=== PATIENT | female | born 1950 | race Caucasian/White ===

== ENCOUNTER 2016-11-03 15:27 | Inpatient (IN) | payer BC, OTHER ==
[~2016-11-03] VITALS: Ht 165.1 cm; Wt 69.5 kg
[2016-11-03] MEDS ORDERED: SODIUM CHLORIDE 0.9% 1000ML 1,000 ML IV STA (15:34)
[2016-11-03 15:52] LABS: BASO % 0.4 %; BASO ABS # 0.04 K/uL (0-0.2); COMPLETE YES; EOS % 1.2 %; HEMATOCRIT 36.3 % (37-47); IG% 0.1 %; LYMPH % 36.3 %; LYMPH ABS # 3.27 K/uL (1.2-3.4); MEAN CELL VOLUME 88.5 fL (80-100); MEAN CORPUSCULAR HEMOGLOBIN 29.5 pg (25-34); MEAN CORPUSCULAR HGB CONC 33.3 g/dl (32-36); MEAN PLATELET VOLUME 9.2 fL (7.4-10.4); MONO % 10.3 %; NEUT % 51.7 %; PLATELET COUNT 244 K/uL (130-400)
--- NOTE | 2016-11-03 15:53 | DIAGNOSTIC IMAGING REPORT ---
SINGLE VIEW CHEST CLINICAL HISTORY: Generalized weakness. Atypical chest pain. FINDINGS: An AP, portable, upright chest radiograph is compared to study dated 01/04/2014. The heart is top normal for projection. The mediastinal contour is within normal limits. Chronic interstitial thickening is unchanged. No airspace consolidation, large pleural effusion, or pneumothorax is seen. The skeletal structures are osteopenic. The bony thorax is grossly intact. Surgical clips are noted in the left axilla. IMPRESSION: No acute cardiopulmonary abnormality. Electronically signed by: Jerry Funez M.D. 11/03/2016 3:52 PM Dictated Date/Time: 11/03/2016 3:51 PM
[2016-11-03 16:00] LABS: INR 0.9 (0.9-1.1); PARTIAL THROMBOPLASTIN RATIO 0.9
[2016-11-03 16:09] LABS: ALT/SGPT 38 U/L (12-78); AST/SGOT 30 U/L (15-37); BLOOD UREA NITROGEN 14 mg/dl (7-18); BUN/CREATININE RATIO 20.1 (10-20); CALCIUM 9.1 mg/dl (8.5-10.1); CARBON DIOXIDE 24 mmol/L (21-32); CHLORIDE 107 mmol/L (98-107); CREATININE 0.68 mg/dl (0.60-1.20); GLUCOSE 84 mg/dl (70-99); MAGNESIUM 2.2 mg/dl (1.8-2.4); POTASSIUM 3.3 mmol/L (3.5-5.1); SODIUM 140 mmol/L (136-145)
[2016-11-03 16:18] LABS: ALKALINE PHOSPHATASE 61 U/L (45-117); CKMB/CK RATIO 1.3 (0-3.0); THYROID STIMULATING HORMONE 0.621 uIu/ml (0.300-4.500)
--- NOTE | 2016-11-03 16:41 | DIAGNOSTIC IMAGING REPORT ---
ULTRASOUND RIGHT UPPER QUADRANT ABDOMEN CLINICAL HISTORY: Right upper quadrant abdominal pain. COMPARISON STUDY: Abdominal ultrasound dated 01/04/2014. TECHNIQUE: Real-time, grayscale, and color flow sonography of the right upper quadrant of the abdomen was performed. Images are reviewed in the transverse and longitudinal planes. FINDINGS: Liver: The liver is normal in size and echotexture. There is no intrahepatic biliary ductal dilatation. The main portal vein is patent. Gallbladder: The gallbladder is distended and there are small calcified gallstones identified. There is no gallbladder wall thickening or pericholecystic fluid. A sonographic Baxter's sign is reportedly absent. The common bile duct measures up to 0.6 cm in diameter. Pancreas: Visualized portions of the pancreatic head and body are normal in appearance. The splenic vein is patent. Right kidney: Survey images of the right kidney demonstrate normal size and echotexture. There is no hydronephrosis. Ascites: None. IMPRESSION: The gallbladder is distended and there are small calcified gallstones identified. The gallbladder wall is not thickened and a sonographic Baxter's sign is reportedly absent. There is no definitive sonographic evidence of acute cholecystitis. If there is strong clinical concern for acute cholecystitis consider nuclear hepatobiliary scan for further assessment. Electronically signed by: Jerry Funez M.D. 11/03/2016 4:39 PM Dictated Date/Time: 11/03/2016 4:37 PM
[2016-11-03] MEDS ORDERED: FLUO40CA8 PO (17:06)
[2016-11-03] MEDS ORDERED: MoRPHine SULFATE 4 MG/ML 1 ML CARP\\VIAL IV STA (17:14)
[2016-11-03] MEDS ORDERED: ONDANSETRON INJ 2 MG/ML 2 ML VIAL IV STA (17:14)
[2016-11-03] MEDS ORDERED: MULT-513 PO (17:16)
[2016-11-03] MEDS ORDERED: MULT60CA PO (17:16)
[2016-11-03] MEDS ORDERED: CALCTAB7 PO (17:16)
[2016-11-03] MEDS ORDERED: EZET10TA41 PO (17:16)
[2016-11-03] MEDS ORDERED: ALPR0.5T PO (17:16)
[2016-11-03] MEDS ORDERED: LANS15CA6 PO (17:16)
[2016-11-03] MEDS ORDERED: GLUCCAP31 PO (17:16)
[2016-11-03 18:50] LABS: URINE APPEARANCE CLEAR (CLEAR); URINE BILIRUBIN NEG (NEG); URINE COLOR YELLOW; URINE NITRITE NEG (NEG); URINE PH 7.5 (4.5-7.5); URINE SPECIFIC GRAVITY 1.015 (1.000-1.030); UROBILINOGEN NEG (NEG)
[2016-11-03 18:55] LABS: MANUAL MICROSCOPIC REQUIRED? NO; REVIEW REQ? NO
[2016-11-03] MEDS: POTASSIUM CHLORIDE 10 MEQ TABCR PO STA ×2 (20:55→21:00)
--- NOTE | 2016-11-03 21:15 | History and Physical ---
History & Physical Date & Time of Service: November 03, 2016 at 20:51 Chief Complaint: Chest Pains Primary Care Physician: Sheron Gill D.OConchita History of Present Illness Source: patient This is a 66 y/o female with PMHx as outlined below who presents to the ED c/o epigastric pain x 6 hrs. 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 Her sxs were assoc with nausea. Nothing makes her sxs better or worse but she mentions she feels like if she keeps moving she will feel better. She did not take anything for her sxs at home. Last meal was breakfast this morning. Pt has had similar sxs a few years ago but her workup was benign and the pain eventually subsided. Pt denies fever/ chills, diaphoresis, chest pain, SOB, vomiting, bowel or bladder issues, LE edema ,calf pain, lightheadedness/dizziness. In the ED, vitals are stable. Pt is afebrile with no leukocytosis. K+ 3.3. LFTs WNL. gallbladder US + gallbladder distention but no thickening. Pt is stable and will be admitted for further evaluation and treatment. Past Medical/Surgical History Medical Problems: (1) Anxiety Status: Chronic (2) Breast CA Status: Resolved Surgical Problems: (1) History of lumpectomy of left breast Status: Resolved Family History No pertinent family history Social History Smoking Status: Never Smoker Alcohol Use: socially Drug Use: none Marital Status: Housing status: lives with family Occupational Status: retired Allergies Coded Allergies: Nitrofurantoin (Verified Allergy, Intermediate, DIZZY, 01/04/14) Sulfa Drugs (Verified Allergy, Intermediate, dizzy, 01/04/14) Home Medications Scheduled Calcium Carbonate-Vitamin D W/ (Caltrate 600 Plus), 1 TAB PO BID Ezetimibe/Simvastatin (Vytorin 10MG/40MG), 1 TAB PO QAM Fluoxetine (Prozac), 40 MG PO DAILY Glucosamine Sulfate-Methylsulf (Msm/Glucosamine), 1 CAP PO BID Lansoprazole (Prevacid), 30 MG PO DAILY Multiple Vitamins W/ Minerals (Preservision Areds 2), 2 CAP PO QAM Multivitamins/Minerals (Mvi With Minerals), 1 TAB PO DAILY Scheduled PRN Alprazolam (Xanax), 0.5 MG PO TID PRN for Anxiety Review of Systems Constitutional: No chills, No fatigue, No fever, No sweats, No weakness Eyes: No worsening of vision ENT: No hearing loss Respiratory: No cough, No shortness of breath Cardiovascular: No chest pain, No claudication, No edema Abdomen: + nausea, + pain, No GI bleeding, No constipation, No diarrhea, No vomiting Musculoskeletal: No calf pain, No swelling Genitourinary - Female: No dysuria, No hematuria Neurologic: No weakness Psychiatric: No depression symptoms Endocrine: No fatigue Hematologic / Lymphatic: No abnormal bleeding/bruising Integumentary: No new/changing skin lesions Physical Exam Vital Signs Date Time Temp Pulse Resp B/P Pulse Ox O2 Delivery O2 Flow Rate FiO2 11/03/16 18:54 75 19 137/75 93 Room Air 11/03/16 17:19 75 11/03/16 17:16 71 15 136/80 100 Room Air 11/03/16 15:43 71 12 123/77 99 Room Air 11/03/16 15:39 99 Room Air 11/03/16 15:39 99 Room Air 11/03/16 15:39 99 Room Air 11/03/16 15:29 36.4 76 20 117/72 99 Room Air General Appearance: WD/WN, no apparent distress, + pertinent finding (Pt is sitting up in bed with at bedside) Head: normocephalic, atraumatic Eyes: normal inspection, + pertinent finding (anicteric) ENT: hearing grossly normal Neck: supple Respiratory/Chest: chest non-tender, lungs clear, normal breath sounds, no respiratory distress Cardiovascular: regular rate, rhythm, no edema, no murmur Abdomen/GI: normal bowel sounds, soft, + tenderness (RUQ; + murphys sign) Back: normal inspection Extremities/Musculoskelatal: normal inspection, no calf tenderness, no pedal edema Neurologic/Psych: alert, normal mood/affect, oriented x 3 Skin: normal color, warm/dry, + pertinent finding (no jaundice) Diagnostics Laboratory Results Results Past 24 Hours Test 11/03/16 15:40 11/03/16 18:30 Range/Units White Blood Count 9.00 4.8-10.8 K/uL Red Blood Count 4.10 4.2-5.4 M/uL Hemoglobin 12.1 12.0-16.0 g/dL Hematocrit 36.3 37-47 % Mean Corpuscular Volume 88.5 80-100 fL Mean Corpuscular Hemoglobin 29.5 25-34 pg Mean Corpuscular Hemoglobin Concent 33.3 32-36 g/dl Platelet Count 244 130-400 K/uL Mean Platelet Volume 9.2 7.4-10.4 fL Neutrophils (%) (Auto) 51.7 % Lymphocytes (%) (Auto) 36.3 % Monocytes (%) (Auto) 10.3 % Eosinophils (%) (Auto) 1.2 % Basophils (%) (Auto) 0.4 % Neutrophils # (Auto) 4.64 1.4-6.5 K/uL Lymphocytes # (Auto) 3.27 1.2-3.4 K/uL Monocytes # (Auto) 0.93 0.11-0.59 K/uL Eosinophils # (Auto) 0.11 0-0.5 K/uL Basophils # (Auto) 0.04 0-0.2 K/uL RDW Standard Deviation 43.8 36.4-46.3 fL RDW Coefficient of Variation 13.4 11.5-14.5 % Immature Granulocyte % (Auto) 0.1 % Immature Granulocyte # (Auto) 0.01 0.00-0.02 K/uL Prothrombin Time 10.0 9.0-12.0 SECONDS Prothromb Time International Ratio 0.9 0.9-1.1 Activated Partial Thromboplast Time 23.3 21.0-31.0 SECONDS Partial Thromboplastin Ratio 0.9 Sodium Level 140 136-145 mmol/L Potassium Level 3.3 3.5-5.1 mmol/L Chloride Level 107 98-107 mmol/L Carbon Dioxide Level 24 21-32 mmol/L Anion Gap 9.0 3-11 mmol/L Blood Urea Nitrogen 14 7-18 mg/dl Creatinine 0.68 0.60-1.20 mg/dl Est Creatinine Clear Calc Drug Dose 79.7 ml/min Estimated GFR () 105.6 Estimated GFR (Non- 91.2 BUN/Creatinine Ratio 20.1 10-20 Random Glucose 84 70-99 mg/dl Calcium Level 9.1 8.5-10.1 mg/dl Magnesium Level 2.2 1.8-2.4 mg/dl Total Bilirubin 0.5 0.2-1 mg/dl Direct Bilirubin < 0.1 0-0.2 mg/dl Aspartate Amino Transf (AST/SGOT) 30 15-37 U/L Alanine Aminotransferase (ALT/SGPT) 38 12-78 U/L Alkaline Phosphatase 61 45-117 U/L Total Creatine Kinase 164 26-192 U/L Creatine Kinase MB 2.2 0.5-3.6 ng/ml Creatine Kinase MB Ratio 1.3 0-3.0 Troponin I < 0.015 0-0.045 ng/ml Total Protein 7.8 6.4-8.2 gm/dl Albumin 4.2 3.4-5.0 gm/dl Lipase 172 73-393 U/L Thyroid Stimulating Hormone (TSH) 0.621 0.300-4.500 uIu/ml Urine Color YELLOW Urine Appearance CLEAR CLEAR Urine pH 7.5 4.5-7.5 Urine Specific [place] 1.015 1.000-1.030 Urine Protein NEG NEG Urine Glucose (UA) NEG NEG Urine Ketones 1+ NEG Urine Occult Blood NEG NEG Urine Nitrite NEG NEG Urine Bilirubin NEG NEG Urine Urobilinogen NEG NEG Urine Leukocyte Esterase TRACE NEG Urine WBC (Auto) 1-5 0-5 /hpf Urine RBC (Auto) 0-4 0-4 /hpf Urine Hyaline Casts (Auto) 0 0-5 /lpf Urine Epithelial Cells (Auto) 5-10 0-5 /lpf Urine Bacteria (Auto) NEG NEG Diagnostic Radiology GALLBLADDER US IMPRESSION: The gallbladder is distended and there are small calcified gallstones identified. The gallbladder wall is not thickened and a sonographic Baxter's sign is reportedly absent. There is no definitive sonographic evidence of acute cholecystitis. If there is strong clinical concern for acute cholecystitis consider nuclear hepatobiliary scan for further assessment. CXR IMPRESSION: No acute cardiopulmonary abnormality. EKG EKG: NSR at 68 bpm with no acute ischemic changes; PVCs no longer present when compared to EKG from 01/04/14 Impression Assessment and Plan BILIARY COLIC pt presented with crampy epigastric pain assoc with nausea -admit observation status to med/surg -pt is afebrile with no leukocytosis -LFTs and lipase WNL -Gallbladder US + distention but no wall thickening -keep NPO for now -cont IVF, antiemetics and pain mgmt -obtain HIDA scan for further evaluation -monitor HYPOKALEMIA -K+ 3.3; replete -monitor with daily prp H/O BREAST CA -s/p L breast lumpectomy and chemo in 2000 -stable ANXIETY -cont Prozac and Xanax PRN GERD -cont Prevacid DYSLIPIDEMIA -cont Vytorin DVT PROPHYLAXIS -subq Lovenox CODE STATUS -FULL CODE status DISPO -Observation status until further workup is complete. Pt seen in collaboration with Dr. Rob. Please see his addendum for further details. Thanks! -Pt will be seen by Dr. Faith starting tomorrow AM. Assessment/Plan IM ATTENDING : Patient seen and examined. Preceding documentation by Miss Justine Alonso PA-C reviewed. FINAL ASSESSMENT AND PLAN as follows: 1. Right upper quadrant pain biliary colic vs acute cholecystitis no sepsis. 2. Hypokalemia secondary to illness. 3. History of breast cancer, left status post surgery, radiation and chemotherapy/completed hormonal tx. OBS GMF analgesia. HIDA scan. Further management pending HIDA scan results. Replace potassium. DVT prophylaxis, Lovenox subQ. Full code.
[2016-11-03] MEDS ORDERED: KETOROLAC TROMETHAMINE 30 MG/ML VIAL IV STA (21:42)
[2016-11-03] MEDS ORDERED: PROMETHAZINE HCL INJ 12.5 MG in SODIUM CHLORIDE 0.9% 50ML 50 ML IV PRN (21:45)
[2016-11-03] MEDS ORDERED: HYDROmorphone INJ 0.5 MG/0.5 ML SYR IV PRN (21:45)
[2016-11-03] MEDS ORDERED: ONDANSETRON INJ 2 MG/ML 2 ML VIAL IV PRN (21:45)
[2016-11-03] MEDS ORDERED: LORAZEPAM 2 MG/ML 1 ML VIAL IV PRN (21:45)
[2016-11-03] MEDS ORDERED: IV FLUIDS COMPLETED PRN (22:00)
[2016-11-03] MEDS ORDERED: LACTATED RINGER'S 1000ML 1,000 ML IV SCH (22:15)
[2016-11-03 22:30] VITALS: BP 135/79; PULSE 76; TEMP 36.9; O2SAT 95; Ht 165.1 cm; Wt 69.5 kg
[2016-11-03] MEDS: POTASSIUM CHLR 10 MEQ / WTR 10 MEQ in PREMIXED WATER 100 ML IV SCH (23:00)
[2016-11-04] VITALS (8 sets, daily range): BP systolic 93–117; BP diastolic 55–76; PULSE 68–79; TEMP 36.6–37.2; O2SAT 92–98
[2016-11-04] MEDS: POTASSIUM CHLR 10 MEQ / WTR 10 MEQ in PREMIXED WATER 100 ML IV SCH (00:12)
--- NOTE | 2016-11-04 00:40 | EMERGENCY ROOM VISIT NOTE ---
History Report prepared by Christiano: Malini Paul Under the Supervision of: Dr. Adin Emanuel M.D. First contact with patient: 15:34 Chief Complaint: CHEST PAIN Stated Complaint: CHEST PAINS History of Present Illness The patient is a 66 year old female who presents to the Emergency Room with complaints of constant chest/epigastric abdominal pain starting an hour ago. The patient rates her pain as a 2/10 in severity. She reports that she was driving around while putting signs up for an event this weekend and a pain feeling like she "swallowed too much air." She states that it feels similar to bloating, but located under her ribs on the right. The patient reports that she tried to swallow more air to burp, but had no relief. She notes that the pain does not move and that it worsens when letting her breath out. She reports that she has not taken anything for the pain. The patient states that standing and bending over help relieve the pain. The patient also complains of a dry mouth. She notes that she has never been to her doctor for this before. The patient states that she came to the ED one or two years ago with similar pain, but the pain was in her gut. Pt denies LOC, headache, fevers, chills, diaphoresis, visual changes, neck pain, arm pain, jaw pain, breathing difficulties, nausea, vomiting, back pain, melena, hematochezia, urinary symptoms, numbness, weakness , lymphadenopathy, rash, or other complaints. Source of History: patient Onset: an hour ago Position: chest Symptom Intensity: 2/10 Timing: constant Modifying Factors (Worsening): breathing (when breathing out) Modifying Factors (Relieving): other (standing and bending over) Note: The patient complains of a dry mouth. Review of Systems See HPI for pertinent positives and negatives. A total of ten systems were reviewed and were otherwise negative. Past Medical & Surgical Medical Problems: (1) Abdominal pain (2) Anxiety (3) Breast CA (4) Breast cancer Surgical Problems: (1) History of lumpectomy of left breast Family History No pertinent family history Social History Smoking Status: Never Smoker Marital Status: Housing Status: lives with family Current/Historical Medications Scheduled Calcium Carbonate-Vitamin D W/ (Caltrate 600 Plus), 1 TAB PO BID Ezetimibe/Simvastatin (Vytorin 10MG/40MG), 1 TAB PO QAM Fluoxetine (Prozac), 40 MG PO DAILY Glucosamine Sulfate-Methylsulf (Msm/Glucosamine), 1 CAP PO BID Lansoprazole (Prevacid), 30 MG PO DAILY Multiple Vitamins W/ Minerals (Preservision Areds 2), 2 CAP PO QAM Multivitamins/Minerals (Mvi With Minerals), 1 TAB PO DAILY Scheduled PRN Alprazolam (Xanax), 0.5 MG PO TID PRN for Anxiety Allergies Coded Allergies: Nitrofurantoin (Verified Allergy, Intermediate, DIZZY, 01/04/14) Sulfa Drugs (Verified Allergy, Intermediate, dizzy, 01/04/14) Physical Exam Vital Signs Date Time Temp Pulse Resp B/P Pulse Ox O2 Delivery O2 Flow Rate FiO2 11/03/16 21:29 66 11/03/16 20:53 62 23 117/69 97 Room Air 11/03/16 18:54 75 19 137/75 93 Room Air 11/03/16 17:19 75 11/03/16 17:16 71 15 136/80 100 Room Air 11/03/16 15:43 71 12 123/77 99 Room Air 11/03/16 15:39 99 Room Air 11/03/16 15:39 99 Room Air 11/03/16 15:39 99 Room Air 11/03/16 15:29 36.4 76 20 117/72 99 Room Air Physical Exam GENERAL: Awake, alert, well-appearing, in no distress HENT: Normocephalic, atraumatic. Oropharynx unremarkable. EYES: Normal conjunctiva. Sclera non-icteric. NECK: Supple. No nuchal rigidity. FROM. No JVD. RESPIRATORY: Clear to auscultation. CARDIAC: Regular rate, normal rhythm. Extremities warm and well perfused. Pulses equal. ABDOMEN: Soft, non-distended. Tenderness in RUQ. No rebound or guarding. No masses. RECTAL: Deferred. MUSCULOSKELETAL: Chest examination reveals no tenderness. The back is symmetrical on inspection without obvious abnormality. There is no CVA tenderness to palpation. No joint edema. LOWER EXTREMITIES: Calves are equal size bilaterally and non-tender. No edema. No discoloration. NEURO: Normal sensorium. No sensory or motor deficits noted. SKIN: No rash or jaundice noted. Medical Decision & Procedures ER Provider Diagnostic Interpretation: Radiology results as stated below per my review and radiologist interpretation: ULTRASOUND RIGHT UPPER QUADRANT ABDOMEN CLINICAL HISTORY: Right upper quadrant abdominal pain. COMPARISON STUDY: Abdominal ultrasound dated 01/04/2014. TECHNIQUE: Real-time, grayscale, and color flow sonography of the right upper quadrant of the abdomen was performed. Images are reviewed in the transverse and longitudinal planes. FINDINGS: Liver: The liver is normal in size and echotexture. There is no intrahepatic biliary ductal dilatation. The main portal vein is patent. Gallbladder: The gallbladder is distended and there are small calcified gallstones identified. There is no gallbladder wall thickening or pericholecystic fluid. A sonographic Baxter's sign is reportedly absent. The common bile duct measures up to 0.6 cm in diameter. Pancreas: Visualized portions of the pancreatic head and body are normal in appearance. The splenic vein is patent. Right kidney: Survey images of the right kidney demonstrate normal size and echotexture. There is no hydronephrosis. Ascites: None. IMPRESSION: The gallbladder is distended and there are small calcified gallstones identified. The gallbladder wall is not thickened and a sonographic Baxter's sign is reportedly absent. There is no definitive sonographic evidence of acute cholecystitis. If there is strong clinical concern for acute cholecystitis consider nuclear hepatobiliary scan for further assessment. Electronically signed by: Jerry Funez M.D. 11/03/2016 4:39 PM Dictated Date/Time: 11/03/2016 4:37 PM SINGLE VIEW CHEST CLINICAL HISTORY: Generalized weakness. Atypical chest pain. FINDINGS: An AP, portable, upright chest radiograph is compared to study dated 01/04/2014. The heart is top normal for projection. The mediastinal contour is within normal limits. Chronic interstitial thickening is unchanged. No airspace consolidation, large pleural effusion, or pneumothorax is seen. The skeletal structures are osteopenic. The bony thorax is grossly intact. Surgical clips are noted in the left axilla. IMPRESSION: No acute cardiopulmonary abnormality. Electronically signed by: Jerry Funez M.D. 11/03/2016 3:52 PM Dictated Date/Time: 11/03/2016 3:51 PM Laboratory Results 11/03/16 15:40 Red Blood Count 4.10, Mean Corpuscular Volume 88.5, Mean Corpuscular Hemoglobin 29.5, Mean Corpuscular Hemoglobin Concent 33.3, Mean Platelet Volume 9.2, Neutrophils (%) (Auto) 51.7, Lymphocytes (%) (Auto) 36.3, Monocytes (%) (Auto) 10.3, Eosinophils (%) (Auto) 1.2, Basophils (%) (Auto) 0.4, Neutrophils # (Auto ) 4.64, Lymphocytes # (Auto) 3.27, Monocytes # (Auto) 0.93, Eosinophils # (Auto ) 0.11, Basophils # (Auto) 0.04 11/03/16 15:40 Test 11/03/16 15:40 11/03/16 18:30 White Blood Count 9.00 K/uL (4.8-10.8) Red Blood Count 4.10 M/uL (4.2-5.4) Hemoglobin 12.1 g/dL (12.0-16.0) Hematocrit 36.3 % (37-47) Mean Corpuscular Volume 88.5 fL (80-100) Mean Corpuscular Hemoglobin 29.5 pg (25-34) Mean Corpuscular Hemoglobin Concent 33.3 g/dl (32-36) Platelet Count 244 K/uL (130-400) Mean Platelet Volume 9.2 fL (7.4-10.4) Neutrophils (%) (Auto) 51.7 % Lymphocytes (%) (Auto) 36.3 % Monocytes (%) (Auto) 10.3 % Eosinophils (%) (Auto) 1.2 % Basophils (%) (Auto) 0.4 % Neutrophils # (Auto) 4.64 K/uL (1.4-6.5) Lymphocytes # (Auto) 3.27 K/uL (1.2-3.4) Monocytes # (Auto) 0.93 K/uL (0.11-0.59) Eosinophils # (Auto) 0.11 K/uL (0-0.5) Basophils # (Auto) 0.04 K/uL (0-0.2) RDW Standard Deviation 43.8 fL (36.4-46.3) RDW Coefficient of Variation 13.4 % (11.5-14.5) Immature Granulocyte % (Auto) 0.1 % Immature Granulocyte # (Auto) 0.01 K/uL (0.00-0.02) Prothrombin Time 10.0 SECONDS (9.0-12.0) Prothromb Time International Ratio 0.9 (0.9-1.1) Activated Partial Thromboplast Time 23.3 SECONDS (21.0-31.0) Partial Thromboplastin Ratio 0.9 Anion Gap 9.0 mmol/L (3-11) Est Creatinine Clear Calc Drug Dose 79.7 ml/min Estimated GFR () 105.6 Estimated GFR (Non- 91.2 BUN/Creatinine Ratio 20.1 (10-20) Calcium Level 9.1 mg/dl (8.5-10.1) Magnesium Level 2.2 mg/dl (1.8-2.4) Total Bilirubin 0.5 mg/dl (0.2-1) Direct Bilirubin < 0.1 mg/dl (0-0.2) Aspartate Amino Transf (AST/SGOT) 30 U/L (15-37) Alanine Aminotransferase (ALT/SGPT) 38 U/L (12-78) Alkaline Phosphatase 61 U/L (45-117) Total Creatine Kinase 164 U/L (26-192) Creatine Kinase MB 2.2 ng/ml (0.5-3.6) Creatine Kinase MB Ratio 1.3 (0-3.0) Troponin I < 0.015 ng/ml (0-0.045) Total Protein 7.8 gm/dl (6.4-8.2) Albumin 4.2 gm/dl (3.4-5.0) Lipase 172 U/L (73-393) Thyroid Stimulating Hormone (TSH) 0.621 uIu/ml (0.300-4.500) Urine Color YELLOW Urine Appearance CLEAR (CLEAR) Urine pH 7.5 (4.5-7.5) Urine Specific [place] 1.015 (1.000-1.030) Urine Protein NEG (NEG) Urine Glucose (UA) NEG (NEG) Urine Ketones 1+ (NEG) Urine Occult Blood NEG (NEG) Urine Nitrite NEG (NEG) Urine Bilirubin NEG (NEG) Urine Urobilinogen NEG (NEG) Urine Leukocyte Esterase TRACE (NEG) Urine WBC (Auto) 1-5 /hpf (0-5) Urine RBC (Auto) 0-4 /hpf (0-4) Urine Hyaline Casts (Auto) 0 /lpf (0-5) Urine Epithelial Cells (Auto) 5-10 /lpf (0-5) Urine Bacteria (Auto) NEG (NEG) Laboratory results reviewed by me Medications Administered Medications (Trade) Dose Ordered Sig/Ari Route Start Time Stop Time Status Last Admin Dose Admin Sodium Chloride (Nss 1000ml) 1,000 ml @ 125 mls/hr Q8H STAT IV 11/03/16 15:34 11/03/16 20:15 DC 11/03/16 16:02 125 MLS/HR Ondansetron HCl (Zofran Inj) 4 mg NOW STAT IV 11/03/16 17:14 11/03/16 17:15 DC 11/03/16 17:28 4 MG Morphine Sulfate (MoRPHine SULFATE INJ) 4 mg NOW STAT IV 11/03/16 17:14 11/03/16 17:15 DC 11/03/16 17:29 4 MG ECG Indication: chest pain Rate (beats per minute): 68 Rhythm: normal sinus Findings: no acute ischemic change, no ectopy ED Course 1546: The patient was evaluated in room A10. A complete history and physical exam was performed. 1534: Ordered NSS 1000 ml @ 125 mls/hr IV. 1712: I reevaluated the patient and she is feeling worse. She stated that her pain had increased to a 4/10 in severity and she is nauseous. 1714: Ordered Morphine Sulfate INJ 4 mg IV, Zofran Inj 4 mg IV. 1944: Upon reexamination, the patient was resting comfortably. I discussed the test results and treatment plan with her. The patient will be evaluated for further management. 2009: Discussed the patient's case with Dr. Costa. The patient will be evaluated for further treatment and disposition. Medical Decision Triage Nursing notes reviewed. The patient's presentation and history were concerning for upper abdominal pain. Etiologies such as PUD, biliary pathology, pancreatitis, cardiac sources, appendicitis, diverticulitis, obstruction, inflammatory bowel disease, renal colic, mesenteric ischemia, aortic pathology, infections, genitourinary, UTI, perforated viscus, as well as others were entertained. The patient was evaluated. Her ECG was unremarkable. She had tenderness in the right upper quadrant. Record review indicated that she had a borderline abnormal gallbladder ultrasound done 3 years ago. She did not have follow-up for this as an outpatient. The patient declined analgesia initially. She was sent for ultrasound imaging. Her CBC, chemistry panel, LFTs, lipase, and cardiac markers are negative. Ultrasound imaging did show some gallbladder wall thickening with some stones but no clear evidence of cholecystitis. The patient then did request analgesia. She was given Zofran 4 mg and morphine 4 mg. The patient was reassessed. She was still having right upper quadrant abdominal pain given the abnormal ultrasound further evaluation and management will be necessary. I discussed treatment options including staying in the hospital. The patient was in agreement for further management in the hospital. Consultation was made with internal medicine. The patient was evaluated. The chart was completed utilizing [employer] voice recognition software. Grammatical errors, random word insertions, pronoun errors, and incomplete sentences are an occasional consequence of this system due to software limitations, ambient noise, and hardware issues. Any formal questions or concerns about the content, text, or information contained within the body of this dictation should be directly addressed to the physician for clarification. Consults Time Called: 1943 Consulting Physician: Dr. Raul Caba Returned Call: 2009 Discussed the patient's case. The patient will be evaluated for further treatment and disposition. Impression Primary Impression: Right upper quadrant abdominal pain Scribe Attestation The scribe's documentation has been prepared under my direction and personally reviewed by me in its entirety. I confirm that the note above accurately reflects all work, treatment, procedures, and medical decision making performed by me. Departure Information Dispostion Being Evaluated By Hospitalist Sheron Ramirez D.O. (PCP) Patient Instructions My [facility]
[2016-11-04 06:23] LABS: BASO % 0.1 %; BASO ABS # 0.01 K/uL (0-0.2); COMPLETE YES; EOS % 0.1 %; HEMATOCRIT 36.1 % (37-47); IG% 0.1 %; LYMPH % 8.1 %; LYMPH ABS # 1.12 K/uL (1.2-3.4); MEAN CELL VOLUME 90.3 fL (80-100); MEAN CORPUSCULAR HEMOGLOBIN 29.5 pg (25-34); MEAN CORPUSCULAR HGB CONC 32.7 g/dl (32-36); MEAN PLATELET VOLUME 9.8 fL (7.4-10.4); NEUT % 80.6 %; PLATELET COUNT 214 K/uL (130-400); WHITE BLOOD COUNT 13.77 K/uL (4.8-10.8)
--- NOTE | 2016-11-04 06:44 | HISTORY & PHYSICAL EXAMINATION ---
DATE OF ADMISSION: 11/03/2016 IM ATTENDING : Patient seen and examined. Preceding documentation by Miss Justine Alonso PA-C reviewed. FINAL ASSESSMENT AND PLAN as follows: 1. Right upper quadrant pain biliary colic vs acute cholecystitis no sepsis. 2. Hypokalemia secondary to illness. 3. History of breast cancer, left status post surgery, radiation and chemotherapy/completed hormonal tx. OBS GMF analgesia. HIDA scan. Further management pending HIDA scan results. Replace potassium. DVT prophylaxis, Lovenox subQ. Full code. MTDD
[2016-11-04 07:02] LABS: BUN/CREATININE RATIO 20.6 (10-20); CALCIUM 8.5 mg/dl (8.5-10.1); CREATININE 0.56 mg/dl (0.60-1.20); POTASSIUM 4.2 mmol/L (3.5-5.1)
[2016-11-04] MEDS ORDERED: ENOXAPARIN 40 MG/0.4 ML SYR SQ SCH (08:00)
[2016-11-04] MEDS ORDERED: MoRPHine SULFATE 2 MG/ML CARP ONE (09:22)
--- NOTE | 2016-11-04 10:23 | DIAGNOSTIC IMAGING REPORT ---
NUCLEAR MEDICINE HEPATOBILIARY SCAN CLINICAL HISTORY: Abdominal pain. COMPARISON: Right upper quadrant ultrasound November 03, 2016. TECHNIQUE: 5.4 mCi of technetium 99m Choletec IV was injected at 8:15 AM on November 04, 2016. Immediately following injection, imaging of the abdomen was carried out for 60 minutes in the anterior projection. No gallbladder activity was identified at 60 minutes and therefore 2 mg of morphine was administered IV and imaging was carried out for an additional 30 minutes. FINDINGS: Hepatic uptake of radiotracer is prompt and homogeneous. Activity is first identified within the common bile duct and small bowel at 10 minutes. No gallbladder activity was identified at 60 minutes. Morphine was administered. No gallbladder activity was identified 30 minutes following morphine administration. This suggests cystic duct obstruction. IMPRESSION: Nonvisualization of the gallbladder following morphine administration. The scintigraphic findings suggest acute cholecystitis. Electronically signed by: Dewey Levy M.D. 11/04/2016 10:22 AM Dictated Date/Time: 11/04/2016 10:13 AM
[2016-11-04] MEDS: EZETIMIBE/SIMVASTATIN 10/40 TAB PO SCH (10:46)
[2016-11-04] MEDS: PANTOprazole SOD 40 MG TAB PO SCH (10:46)
[2016-11-04] MEDS: CEROVITE ADV FORMULA TAB PO SCH (10:47)
[2016-11-04] MEDS: FLUOXETINE HCL 20 MG CAP PO SCH (10:47)
[2016-11-04] MEDS: PRESERVISION AREDS~ORDER AWAITING ACTION SCH ×4 (10:54→23:55)
--- NOTE | 2016-11-04 11:28 | Progress Note ---
Progress Note Date of Service November 04, 2016. Progress Note ATTENDING NOTE : pt's HIDA scan shows : IMPRESSION: Nonvisualization of the gallbladder following morphine administration. The scintigraphic findings suggest acute cholecystitis. ordered for NPO IV fluid empiric Abx with Cipro/Flagyl mild leukocytosis with WBC 13 K D/c Lovenox SC general surgery consulted
[2016-11-04] MEDS: KETOROLAC TROMETHAMINE 15 MG/ML VIAL IV. PRN ×2 (12:47→21:50)
[2016-11-04] MEDS: NSS + 20MEQ KCL 1000ML 1,000 ML IV SCH ×2 (12:50→21:00)
[2016-11-04] MEDS: METRONIDAZOLE / NSS 500 MG in PREMIXED NSS 100 ML IV SCH ×2 (12:50→21:00)
--- NOTE | 2016-11-04 13:49 | Pre-Operative Consultation ---
History General Date of Service: November 04, 2016. HPI HPI: The patient is a 66 year old female being seen for cholecystitis. Had eggs for breakfast and in the afternoon developed epigastric pain, N/V. Was admitted by hospitalist last night, HIDA this AM was positive. She had an attack a few years ago and has had diarrhea with fatty foods but not pain, nausea, or vomiting until yesterday. She was NPO for HIDA today and refused Lovenox this morning. Problem List Medical Problems: (1) Abdominal pain (2) Anxiety (3) Breast CA (4) Breast cancer Surgical Problems: (1) History of lumpectomy of left breast Family History Family History: gallbladder disease Social History Hx Tobacco Use In Past Year?: No Smoking Status: Never Smoker Drug Use: none Marital status: Housing status: lives with family Occupation status: retired Allergies Allergies: Coded Allergies: Nitrofurantoin (Verified Allergy, Intermediate, DIZZY, 01/04/14) Sulfa Drugs (Verified Allergy, Intermediate, dizzy, 01/04/14) Medications Current Inpatient Medications Current Inpatient Medications Medications (Trade) Dose Ordered Sig/Ari Route Start Time Stop Time Status Last Admin Dose Admin Ketorolac Tromethamine (Toradol Inj) 15 mg Q6H PRN IV. 11/03/16 21:45 11/08/16 21:44 11/04/16 12:47 15 MG Hydromorphone HCl (Dilaudid Inj) 0.5 mg Q3H PRN IV 11/03/16 21:45 11/17/16 21:44 Lorazepam (Ativan Inj) 0.5 mg Q4H PRN IV 11/03/16 21:45 12/03/16 21:44 Ondansetron HCl 4 mg 4 mg Q6H PRN IV 11/03/16 21:45 12/03/16 21:44 Promethazine HCl/ Sodium Chloride (Phenergan Inj/ Nss 50ml) 50.5 ml @ 204 mls/hr Q6H PRN IV 11/03/16 21:45 12/03/16 21:44 Miscellaneous (Iv Fluids Completed) 1 ea PRN PRN N/A 11/03/16 22:00 11/03/17 21:59 Acetaminophen (Tylenol Tab) 650 mg Q4H PRN PO 11/03/16 22:00 12/03/16 21:59 Alprazolam (Xanax Tab) 0.5 mg TID PRN PO 11/03/16 22:00 12/03/16 21:59 Future Hold Ezetimibe/ Simvastatin (Vytorin 10/40 Tab) 1 tab QAM PO 11/04/16 08:00 12/04/16 08:59 Future Hold 11/04/16 10:46 1 TAB Fluoxetine HCl (Prozac Cap) 40 mg DAILY PO 11/04/16 08:00 12/04/16 08:59 Future Hold 11/04/16 10:47 40 MG Multivitamins/ Minerals (Multivitamin W/ Minerals Tab) 1 tab DAILY PO 11/04/16 08:00 12/04/16 08:59 Future Hold 11/04/16 10:47 1 TAB Pantoprazole Sodium (Protonix Tab) 40 mg DAILY PO 11/04/16 08:00 12/04/16 08:59 Future Hold 11/04/16 10:46 40 MG Miscellaneous Information 1 ea 1 ea QS N/A 11/04/16 00:00 12/04/16 00:00 Potassium Chloride/Sodium Chloride 1,000 ml @ 100 mls/hr Q10H IV 11/04/16 11:30 12/04/16 11:29 11/04/16 12:50 100 MLS/HR Ciprofloxacin/ Dextrose 400 mg/ Prmx 200 ml @ 100 mls/hr Q12H IV 11/04/16 12:00 11/14/16 11:29 Metronidazole/Prmx (Flagyl / Nss/ Premixed Nss) 100 ml @ 100 mls/hr Q8H IV 11/04/16 12:00 11/14/16 11:29 11/04/16 12:50 100 MLS/HR Review of Systems Review of Systems Constitutional: denies chills, denies fever Cardiovascular: denies: chest pain Respiratory: denies: cough, short of breath Gastrointestinal: see HPI, abdominal pain, diarrhea, nausea, vomiting Physical Exam Physical Exam General Appearance: + WD/WN, + distress Ears, Nose, Throat: + normal ENT inspection Respiratory: No abnormal breath sounds Cardiovascular: No systolic murmur, No tachycardia Abdomen: + tenderness (minimal RUQ, recently medicated), No hernia, No organomegaly Extremities: No edema Diagnostics Labs Labs Results Past 24 Hours Test 11/03/16 15:40 11/03/16 18:30 11/04/16 05:22 Range/Units White Blood Count 9.00 13.77 4.8-10.8 K/uL Red Blood Count 4.10 4.00 4.2-5.4 M/uL Hemoglobin 12.1 11.8 12.0-16.0 g/dL Hematocrit 36.3 36.1 37-47 % Mean Corpuscular Volume 88.5 90.3 80-100 fL Mean Corpuscular Hemoglobin 29.5 29.5 25-34 pg Mean Corpuscular Hemoglobin Concent 33.3 32.7 32-36 g/dl Platelet Count 244 214 130-400 K/uL Mean Platelet Volume 9.2 9.8 7.4-10.4 fL Neutrophils (%) (Auto) 51.7 80.6 % Lymphocytes (%) (Auto) 36.3 8.1 % Monocytes (%) (Auto) 10.3 11.0 % Eosinophils (%) (Auto) 1.2 0.1 % Basophils (%) (Auto) 0.4 0.1 % Neutrophils # (Auto) 4.64 11.10 1.4-6.5 K/uL Lymphocytes # (Auto) 3.27 1.12 1.2-3.4 K/uL Monocytes # (Auto) 0.93 1.51 0.11-0.59 K/uL Eosinophils # (Auto) 0.11 0.01 0-0.5 K/uL Basophils # (Auto) 0.04 0.01 0-0.2 K/uL RDW Standard Deviation 43.8 44.5 36.4-46.3 fL RDW Coefficient of Variation 13.4 13.4 11.5-14.5 % Immature Granulocyte % (Auto) 0.1 0.1 % Immature Granulocyte # (Auto) 0.01 0.02 0.00-0.02 K/uL Prothrombin Time 10.0 9.0-12.0 SECONDS Prothromb Time International Ratio 0.9 0.9-1.1 Activated Partial Thromboplast Time 23.3 21.0-31.0 SECONDS Partial Thromboplastin Ratio 0.9 Sodium Level 140 139 136-145 mmol/L Potassium Level 3.3 4.2 3.5-5.1 mmol/L Chloride Level 107 104 98-107 mmol/L Carbon Dioxide Level 24 26 21-32 mmol/L Anion Gap 9.0 9.0 3-11 mmol/L Blood Urea Nitrogen 14 12 7-18 mg/dl Creatinine 0.68 0.56 0.60-1.20 mg/dl Est Creatinine Clear Calc Drug Dose 79.7 96.7 ml/min Estimated GFR () 105.6 112.6 Estimated GFR (Non- 91.2 97.2 BUN/Creatinine Ratio 20.1 20.6 10-20 Random Glucose 84 103 70-99 mg/dl Calcium Level 9.1 8.5 8.5-10.1 mg/dl Magnesium Level 2.2 1.8-2.4 mg/dl Total Bilirubin 0.5 0.8 0.2-1 mg/dl Direct Bilirubin < 0.1 0-0.2 mg/dl Aspartate Amino Transf (AST/SGOT) 30 26 15-37 U/L Alanine Aminotransferase (ALT/SGPT) 38 34 12-78 U/L Alkaline Phosphatase 61 48 45-117 U/L Total Creatine Kinase 164 26-192 U/L Creatine Kinase MB 2.2 0.5-3.6 ng/ml Creatine Kinase MB Ratio 1.3 0-3.0 Troponin I < 0.015 0-0.045 ng/ml Total Protein 7.8 6.7 6.4-8.2 gm/dl Albumin 4.2 3.4 3.4-5.0 gm/dl Lipase 172 73-393 U/L Thyroid Stimulating Hormone (TSH) 0.621 0.300-4.500 uIu/ml Urine Color YELLOW Urine Appearance CLEAR CLEAR Urine pH 7.5 4.5-7.5 Urine Specific [place] 1.015 1.000-1.030 Urine Protein NEG NEG Urine Glucose (UA) NEG NEG Urine Ketones 1+ NEG Urine Occult Blood NEG NEG Urine Nitrite NEG NEG Urine Bilirubin NEG NEG Urine Urobilinogen NEG NEG Urine Leukocyte Esterase TRACE NEG Urine WBC (Auto) 1-5 0-5 /hpf Urine RBC (Auto) 0-4 0-4 /hpf Urine Hyaline Casts (Auto) 0 0-5 /lpf Urine Epithelial Cells (Auto) 5-10 0-5 /lpf Urine Bacteria (Auto) NEG NEG Globulin 3.3 2.5-4.0 gm/dl Albumin/Globulin Ratio 1.0 0.9-2 Diagnostic Radiology Diagnostic Radiology NUCLEAR MEDICINE HEPATOBILIARY SCAN CLINICAL HISTORY: Abdominal pain. COMPARISON: Right upper quadrant ultrasound November 03, 2016. TECHNIQUE: 5.4 mCi of technetium 99m Choletec IV was injected at 8:15 AM on November 04, 2016. Immediately following injection, imaging of the abdomen was carried out for 60 minutes in the anterior projection. No gallbladder activity was identified at 60 minutes and therefore 2 mg of morphine was administered IV and imaging was carried out for an additional 30 minutes. FINDINGS: Hepatic uptake of radiotracer is prompt and homogeneous. Activity is first identified within the common bile duct and small bowel at 10 minutes. No gallbladder activity was identified at 60 minutes. Morphine was administered. No gallbladder activity was identified 30 minutes following morphine administration. This suggests cystic duct obstruction. IMPRESSION: Nonvisualization of the gallbladder following morphine administration. The scintigraphic findings suggest acute cholecystitis. Electronically signed by: Dewey Levy M.D. 11/04/2016 10:22 AM Dictated Date/Time: 11/04/2016 10:13 AM Impression Assessment and Plan Assessment and Plan acute cholecystitis She is agreeable to laparoscopic cholecystectomy and we will proceed this afternoon. She has been NPO and WBC is increased today despite IV Cipro and Flagyl. Dr. Gloria discussed the procedure with her including recovery and risks of bleeding, infection, bile leak, injury to CBD or other structures.
[2016-11-04] MEDS ORDERED: BUPIVACAINE/EPINEPHRINE 0.5% MPF 1:200,000 30 ML VIAL ONE (13:50)
[2016-11-04] MEDS ORDERED: LIDOCAINE HCL 2% 2 ML VIAL (20MG/ML) ONE (13:54)
[2016-11-04] MEDS ORDERED: FENTANYL CITRATE INJ 50 MCG/1 ML 2 ML VIAL ONE ×2 (13:54→15:18)
[2016-11-04] MEDS ORDERED: PROPOFOL IV EMULSION 10 MG/ML 20 ML VIAL IV ONE (13:54)
[2016-11-04] MEDS ORDERED: ROCURONIUM BROMIDE 10 MG/ML 5 ML VIAL ONE (13:54)
[2016-11-04] MEDS ORDERED: MIDAZOLAM HCL 1 MG/ML 2ML VIAL ONE (13:54)
--- NOTE | 2016-11-04 13:58 | Progress Note ---
Internal Med Progress Note Date of Service: November 04, 2016. Provider Documentation: SUBJECTIVE: RUQ pain much improved HIDA scan shows acute cholecystitis surgery consulted pt is being taken to OR today for cholecystectomy OBJECTIVE: Vital Signs-as noted below Exam: General-no sign of distress Eyes-sclera non icteric Lungs-CTA Heart-regular Abdomen-+ RUQ tenderness Extremities-no lower ext edema Neuro-AAO x3, no focal deficit Lab data as noted below. ASSESSMENT & PLAN: ACUTE CHOLECYSTITIS pt presented with crampy epigastric pain assoc with nausea -LFTs and lipase WNL -Gallbladder US + distention but no wall thickening -HIDA -scan shows non visualization of gall bladder , suggestive of acute cholecystitis -surgery consulted appreciate input , pt is being taken to OR today for cholecystectomy pt does not have any significant medical hx , healthy at baseline , has acceptable low risk for surgery Lab shows mild Leucocytosis WBC 13 K ordered empiric Abx with IV Cipro and Flagyl HYPOKALEMIA -due to GI loss -N/V -replaced -follow lytes H/O BREAST CA -s/p L breast lumpectomy and chemo in 2000 -stable ANXIETY -cont Prozac and Xanax PRN GERD -cont Prevacid CODE STATUS -FULL CODE status DVT PROPHYLAXIS DC sub q Lovenox for surgical procedure DISPOSITION possible discharge home tomorrow if recovered adequately from cholecystectomy Vital Signs: Date Time Temp Pulse Resp B/P Pulse Ox O2 Delivery O2 Flow Rate FiO2 11/04/16 11:00 Room Air 11/04/16 07:21 36.9 76 16 98/62 94 Room Air 11/04/16 00:01 Room Air 11/04/16 00:00 36.6 68 16 117/76 98 Room Air 11/03/16 22:30 36.9 76 18 135/79 95 Room Air 11/03/16 22:30 36.9 76 18 135/79 95 Room Air 11/03/16 22:11 74 16 121/63 98 11/03/16 21:29 66 11/03/16 20:53 62 23 117/69 97 Room Air 11/03/16 18:54 75 19 137/75 93 Room Air 11/03/16 17:19 75 11/03/16 17:16 71 15 136/80 100 Room Air 11/03/16 15:43 71 12 123/77 99 Room Air 11/03/16 15:39 99 Room Air 11/03/16 15:39 99 Room Air 11/03/16 15:39 99 Room Air 11/03/16 15:29 36.4 76 20 117/72 99 Room Air Lab Results: Results Past 24 Hours Test 11/03/16 15:40 11/03/16 18:30 11/04/16 05:22 Range/Units White Blood Count 9.00 13.77 4.8-10.8 K/uL Red Blood Count 4.10 4.00 4.2-5.4 M/uL Hemoglobin 12.1 11.8 12.0-16.0 g/dL Hematocrit 36.3 36.1 37-47 % Mean Corpuscular Volume 88.5 90.3 80-100 fL Mean Corpuscular Hemoglobin 29.5 29.5 25-34 pg Mean Corpuscular Hemoglobin Concent 33.3 32.7 32-36 g/dl Platelet Count 244 214 130-400 K/uL Mean Platelet Volume 9.2 9.8 7.4-10.4 fL Neutrophils (%) (Auto) 51.7 80.6 % Lymphocytes (%) (Auto) 36.3 8.1 % Monocytes (%) (Auto) 10.3 11.0 % Eosinophils (%) (Auto) 1.2 0.1 % Basophils (%) (Auto) 0.4 0.1 % Neutrophils # (Auto) 4.64 11.10 1.4-6.5 K/uL Lymphocytes # (Auto) 3.27 1.12 1.2-3.4 K/uL Monocytes # (Auto) 0.93 1.51 0.11-0.59 K/uL Eosinophils # (Auto) 0.11 0.01 0-0.5 K/uL Basophils # (Auto) 0.04 0.01 0-0.2 K/uL RDW Standard Deviation 43.8 44.5 36.4-46.3 fL RDW Coefficient of Variation 13.4 13.4 11.5-14.5 % Immature Granulocyte % (Auto) 0.1 0.1 % Immature Granulocyte # (Auto) 0.01 0.02 0.00-0.02 K/uL Prothrombin Time 10.0 9.0-12.0 SECONDS Prothromb Time International Ratio 0.9 0.9-1.1 Activated Partial Thromboplast Time 23.3 21.0-31.0 SECONDS Partial Thromboplastin Ratio 0.9 Sodium Level 140 139 136-145 mmol/L Potassium Level 3.3 4.2 3.5-5.1 mmol/L Chloride Level 107 104 98-107 mmol/L Carbon Dioxide Level 24 26 21-32 mmol/L Anion Gap 9.0 9.0 3-11 mmol/L Blood Urea Nitrogen 14 12 7-18 mg/dl Creatinine 0.68 0.56 0.60-1.20 mg/dl Est Creatinine Clear Calc Drug Dose 79.7 96.7 ml/min Estimated GFR () 105.6 112.6 Estimated GFR (Non- 91.2 97.2 BUN/Creatinine Ratio 20.1 20.6 10-20 Random Glucose 84 103 70-99 mg/dl Calcium Level 9.1 8.5 8.5-10.1 mg/dl Magnesium Level 2.2 1.8-2.4 mg/dl Total Bilirubin 0.5 0.8 0.2-1 mg/dl Direct Bilirubin < 0.1 0-0.2 mg/dl Aspartate Amino Transf (AST/SGOT) 30 26 15-37 U/L Alanine Aminotransferase (ALT/SGPT) 38 34 12-78 U/L Alkaline Phosphatase 61 48 45-117 U/L Total Creatine Kinase 164 26-192 U/L Creatine Kinase MB 2.2 0.5-3.6 ng/ml Creatine Kinase MB Ratio 1.3 0-3.0 Troponin I < 0.015 0-0.045 ng/ml Total Protein 7.8 6.7 6.4-8.2 gm/dl Albumin 4.2 3.4 3.4-5.0 gm/dl Lipase 172 73-393 U/L Thyroid Stimulating Hormone (TSH) 0.621 0.300-4.500 uIu/ml Urine Color YELLOW Urine Appearance CLEAR CLEAR Urine pH 7.5 4.5-7.5 Urine Specific [place] 1.015 1.000-1.030 Urine Protein NEG NEG Urine Glucose (UA) NEG NEG Urine Ketones 1+ NEG Urine Occult Blood NEG NEG Urine Nitrite NEG NEG Urine Bilirubin NEG NEG Urine Urobilinogen NEG NEG Urine Leukocyte Esterase TRACE NEG Urine WBC (Auto) 1-5 0-5 /hpf Urine RBC (Auto) 0-4 0-4 /hpf Urine Hyaline Casts (Auto) 0 0-5 /lpf Urine Epithelial Cells (Auto) 5-10 0-5 /lpf Urine Bacteria (Auto) NEG NEG Globulin 3.3 2.5-4.0 gm/dl Albumin/Globulin Ratio 1.0 0.9-2
[2016-11-04] MEDS ORDERED: EpHEDrine SULFATE INJ 50 MG/ML AMP IV PRN (15:00)
[2016-11-04] MEDS ORDERED: ATROPINE SULFATE 0.1 MG/ML 5ML SYR IV PRN (15:00)
[2016-11-04] MEDS ORDERED: HYDROmorphone INJ 1 MG/ML SYR IV PRN ×2 (15:00→15:30)
[2016-11-04] MEDS ORDERED: FENTANYL CITRATE INJ 50 MCG/1 ML 2 ML VIAL IV PRN (15:00)
[2016-11-04] MEDS ORDERED: PROMETHAZINE HCL INJ 6.25 MG in SODIUM CHLORIDE 0.9% 50ML 50 ML IV PRN (15:00)
[2016-11-04] MEDS ORDERED: ONDANSETRON INJ 2 MG/ML 2 ML VIAL IV PRN (15:00)
[2016-11-04] MEDS ORDERED: PHENYLEPHRINE 100MCG/ML 5ML SYR ONE (15:00)
[2016-11-04] MEDS ORDERED: ONDANSETRON INJ 2 MG/ML 2 ML VIAL ONE (15:10)
[2016-11-04] MEDS ORDERED: GLYCOPYRROLATE INJ 0.2 MG/ML VIAL ONE (15:25)
[2016-11-04] MEDS ORDERED: NEOSTIGMINE METHYLSULFATE 5 MG/5 ML SYR ONE (15:25)
--- NOTE | 2016-11-04 15:34 | [facility] Operative Report ---
Operative Report Operative Date November 04, 2016. Pre-Operative Diagnosis Acute cholecystitis Post-Operative Diagnosis acute cholecystitis Procedure(s) Performed lap edilma Surgeon Dr.Matthew Gloria Software Controls Engineer Surgeon(s) Aakash Hamlin PA-C Estimated Blood Loss 10ml Findings acutely inflammed gallbladder Specimens A. Gallbladder Anesthesia get Complication(s) None Disposition Recovery Room / PACU I attest to the content of the Intraoperative Record and any orders documented therein. Any exceptions are noted below.
--- NOTE | 2016-11-04 16:03 | Anesthesiology Progress Note ---
Anesthesia Post Op Note Date & Time November 04, 2016 at 16:03 Vital Signs Pain Intensity: 0 Vital Signs Past 12 Hours Date Time Temp Pulse Resp B/P Pulse Ox O2 Delivery O2 Flow Rate FiO2 11/04/16 16:00 71 16 103/63 96 Nasal Cannula 2 11/04/16 15:50 71 16 102/53 95 Nasal Cannula 2 11/04/16 15:40 67 16 104/56 100 Mask 10 11/04/16 15:34 36.8 78 16 111/70 100 Mask 10 11/04/16 11:00 Room Air 11/04/16 07:21 36.9 76 16 98/62 94 Room Air Notes Mental Status: alert / awake / arousable, participated in evaluation Pt Amnestic to Procedure: Yes Nausea / Vomiting: adequately controlled Pain: adequately controlled Airway Patency, RR, SpO2: stable & adequate BP & HR: stable & adequate Hydration State: stable & adequate Anesthetic Complications: no major complications apparent Pt doing well.
[2016-11-04] MEDS: CIPROFLOXACIN / D5W 400 MG in PREMIXED IN D5W 200 ML IV SCH ×2 (16:34→23:52)
--- NOTE | 2016-11-04 20:00 | Progress Note ---
Progress Note Date of Service November 04, 2016. Progress Note ATTENDING NOTE : pt seen post op after returning to floor s/p laparoscopic cholecystectomy by Dr Gloria operative note says -acutely inflamed gall bladder pt has minimum pain abdomen still feels bloated , has not been able to pass gas yet tolerated clears for dinner well will advance to low fat diet for breakfast surgery team will re evaluate the pt in AM possible discharge home tomorrow if OK per surgery
--- NOTE | 2016-11-04 20:03 | Discharge Instructions ---
Discharge Instructions Date of Service November 04, 2016. Admission Reason for Admission: Abdominal Pain Discharge Discharge Diagnosis / Problem: ACUTE CHOLECYSTITIS S/P LAPAROSCOPIC CHOLECYESTECTOMY Discharge Goals Goal(s): Decrease discomfort, Diagnostic testing, Therapeutic intervention Activity Recommendations Activity Limitations: as noted below Lifting Limitations: no more than 10 pounds (for 3 days ) Shower/Bathe: no limitations Driving or Machine Use: resume 3 days after discharge Activity Limitations: as noted below Lifting Limitations: no more than 10 pounds for 3 days Shower/Bathe: no limitations Driving or Machine Use: resume 3 days after discharge . Instructions / Follow-Up Instructions / Follow-Up HOSPITAL FOLLOW UP ON 11/10/2016 @ 1:[address] Sheron Gill, DO [facility] TAKE LASIX 20 MG BY MOUTH DAILY FOR X3 DAYS CONTINUE TO USE INCENTIVE SPIROMETRY AT HOME DO NOT TAKE TYLENOL WHILE TAKING PERCOCET CAN TAKE MOTRIN , ADVIL , ALEVE - NEED FOR PAIN IN BETWEEN PERCOCET , ALWAYS TAKE WITH FULL STOMACH DO NOT TAKE XANAX AND PERCOCET AT THE SAME TIME -WILL CAUSE INCREASED SEDATION DO NOT DRIVE AFTER TAKING PERCOCET- IT CAUSES DROWSINESS, DIMINISHED ALERTNESS IT IS VERY IMPORTANT TO TAKE STOOL SOFTENER TO PREVENT CONSTIPATION WHILE TAKING PAIN MEDS ( PERCOCET ) YOU CAN TAKE OVER THE COUNTER STOOL SOFTENER -MIRALAX , COLACE, DULCOLAX TAKE MIRALAX 1-2 HEAPED TABLE SPOONFUL IN 8 OZ OF WATER /JUICE OR ANY BEVERAGE 2-3 TIMES DAILY UNTIL YOU HAVE BOWEL MOVEMENT CHEST XRAY PA AND LATERAL VIEW ON Wednesday11/09/16 TO ASSESS IMPROVEMENT / RESOLUTION OF LUNG CONGESTION DUE TO IV FLUID YOU MAY NOT NEED JAIL OXYGEN SUPPLELY IF YOUR LUNG CONGESTION RESOLVES WITH TAKING LASIX LAB WORK : BASIC METABOLIC PANEL ON Wednesday11/09/16 [address] FOLLOW UP WITH DR COX in 2 weeks, call [phone] to schedule, [address] Hospital Diet Patient's current hospital diet: Low Fat Diet Discharge Diet Recommended Diet: Low Fat Diet Procedures Procedures Performed: Laparoscopic cholecystectomy Pending Studies Studies pending at discharge: yes List of pending studies: LAB WORK : BASIC METABOLIC PANEL ON Wednesday11/09/16 CHEST XRAY PA/LATERAL VIEW ON DAVID 5/8/17 Medical Emergencies . Who to Call and When: Medical Emergencies: If at any time you feel your situation is an emergency, please call 911 immediately. . Non-Emergent Contact Non-Emergency issues call your: Primary Care Provider . . "Provider Documentation" section prepared by Bonnie Faith. . VTE Core Measure Inpt VTE Proph given/why not?: [facility] [place] Drug Monitoring Program Search Results: no issues identified
[2016-11-04] MEDS ORDERED: POLYETHYLENE (MIRALAX) 17 GM PACK PO PRN (20:15)
[2016-11-04] MEDS ORDERED: OXYCODONE/ACETAMINOPHEN 5-325 TAB PO PRN (20:15)
[2016-11-04] MEDS: DOCUSATE SODIUM 100 MG CAP PO SCH (22:06)
[2016-11-05] MEDS ORDERED: HYDROmorphone INJ 1 MG/ML SYR IV PRN
[2016-11-05 00:24] VITALS: BP 95/60; PULSE 83; TEMP 37; O2SAT 93
[2016-11-05] MEDS: ACETAMINOPHEN 325 MG TAB PO PRN ×2 (02:01→06:12)
[2016-11-05] MEDS: ALPRAZOLAM 0.5 MG TAB PO PRN ×2 (02:06→21:48)
[2016-11-05] MEDS: METRONIDAZOLE / NSS 500 MG in PREMIXED NSS 100 ML IV SCH ×2 (03:45→13:02)
[2016-11-05 05:56] LABS: MEAN CELL VOLUME 90.4 fL (80-100); MEAN CORPUSCULAR HEMOGLOBIN 29.3 pg (25-34); MEAN CORPUSCULAR HGB CONC 32.4 g/dl (32-36); MEAN PLATELET VOLUME 9.3 fL (7.4-10.4); PLATELET COUNT 195 K/uL (130-400); RED BLOOD COUNT 3.65 M/uL (4.2-5.4); WHITE BLOOD COUNT 11.77 K/uL (4.8-10.8)
[2016-11-05] MEDS: NSS + 20MEQ KCL 1000ML 1,000 ML IV SCH (06:14)
[2016-11-05 06:26] LABS: BUN/CREATININE RATIO 16.6 (10-20); CALCIUM 8.1 mg/dl (8.5-10.1); CREATININE 0.61 mg/dl (0.60-1.20); MAGNESIUM 2.2 mg/dl (1.8-2.4); POTASSIUM 4.1 mmol/L (3.5-5.1)
[2016-11-05] MEDS: PRESERVISION AREDS~ORDER AWAITING ACTION SCH ×3 (06:49→23:26)
--- NOTE | 2016-11-05 06:59 | OPERATIVE REPORT ---
DATE OF OPERATION: 11/04/2016 PREOPERATIVE DIAGNOSIS: Acute cholecystitis. POSTOPERATIVE DIAGNOSIS: Same. PROCEDURE: Laparoscopic cholecystectomy. SURGEON: Dr. Nav Gloria. ASSISTANT PRINCIPAL: Luis Angel Hamlin PA-C ESTIMATED BLOOD LOSS: Approximately 10 mL. COMPLICATIONS: No immediate. ANESTHESIA: General. The patient tolerated the procedure well. OPERATIVE NOTE: After informed consent was obtained, the patient was taken to the operating suite and placed in the supine position. After successful intubation, the abdomen was sterilely prepped and draped in the usual fashion. A periumbilical incision made with an 11 blade scalpel and carried down through the soft tissue using electrocautery. Anterior rectus fascia was opened using electrocautery and two #0 Vicryl stay sutures were placed. Peritoneum was entered using blunt finger penetration and a finger sweep was performed. A 12-mm Marquita trocar was placed and the abdomen was insufflated to 18 mmHg. Laparoscope was inserted and the abdomen was examined at 360 degrees. A subxiphoid 5-mm port and 2 right upper quadrant 5-mm ports were all placed under direct vision. The gallbladder was acutely inflamed. It almost had gangrenous appearance to it. It was too distended to grasp with a grasper. We therefore used a gallbladder needle to suck out about 10 mL of bile. We were then able to grab the gallbladder and elevate it superiorly and laterally. A [place] dissector was used to take down adhesions around the neck of the gallbladder. The cystic duct was identified. It was skeletonized and clipped twice proximally and once distally and transected. The cystic artery was also encompassed within this small bundle of tissue and there was no additional cystic artery. We then took down the gallbladder using electrocautery. We were able to remove it intact and placed into an EndoCatch bag. We then used electrocautery to cauterize any small bleeding points on the gallbladder fossa. At the end of the procedure, there was adequate hemostasis and no evidence of any bile leak. We did thoroughly irrigate the entire upper quadrant and suction it free. The gallbladder was placed into an EndoCatch bag and removed from the camera port site. All the trocars were removed and the abdomen was desufflated. The fascia of the camera port was closed using 0 Vicryl in a [id number] fashion. All the wounds were irrigated and closed using 4-0 Monocryl. Marcaine was injected around them for postoperative analgesia and skin glue used as a dressing. The patient was awakened, extubated, and transferred to recovery in stable condition. I attest to the content of the Intraoperative Record and any orders documented therein. Any exceptio ns are noted below.
[2016-11-05 07:56] VITALS: BP 103/67; PULSE 77; TEMP 36.5; O2SAT 94
[2016-11-05] MEDS: CEROVITE ADV FORMULA TAB PO SCH (09:06)
[2016-11-05] MEDS: DOCUSATE SODIUM 100 MG CAP PO SCH ×2 (09:06→21:49)
[2016-11-05] MEDS: PANTOprazole SOD 40 MG TAB PO SCH (09:07)
[2016-11-05] MEDS: EZETIMIBE/SIMVASTATIN 10/40 TAB PO SCH (09:07)
[2016-11-05] MEDS: FLUOXETINE HCL 20 MG CAP PO SCH (09:07)
[2016-11-05] MEDS ORDERED: OXYC-57 PO (09:18)
[2016-11-05] MEDS ORDERED: CIPR1TAB10 PO (09:18)
--- NOTE | 2016-11-05 09:42 | Discharge Instructions ---
Discharge Instructions Date of Service November 05, 2016. Admission Reason for Admission: Abdominal Pain Discharge Discharge Diagnosis / Problem: laparoscopic cholecystectomy Discharge Goals Goal(s): Decrease discomfort Activity Recommendations Activity Limitations: as noted below Lifting Limitations: no more than 10 pounds Shower/Bathe: no limitations Driving or Machine Use: resume 3 days after discharge . Instructions / Follow-Up Instructions / Follow-Up Dr. Gloria in 2 weeks, call [phone] to schedule, [address] Current Hospital Diet Patient's current hospital diet: Low Fat Diet Discharge Diet Recommended Diet: Regular Diet Procedures Procedures Performed: Laparoscopic cholecystectomy Pending Studies Studies pending at discharge: no Medical Emergencies . Who to Call and When: Medical Emergencies: If at any time you feel your situation is an emergency, please call 911 immediately. . Non-Emergent Contact Non-Emergency issues call your: Surgeon Call Non-Emergent contact if: you have a fever, temperature is above 101.5, your pain is not controlled . "Provider Documentation" section prepared by Luis Angel Hamlin. . VTE Core Measure Inpt VTE Proph given/why not?: Genoveva Branch [facility] [place] Drug Monitoring Program Search Results: no issues identified
--- NOTE | 2016-11-05 09:44 | Surgery Progress Note ---
Surgery Progress Note Date of Service November 05, 2016. Subjective Post OP Day: 1 + feeling well, + flatus, + pain controlled, No nausea Objective Vital Signs: Date Time Temp Pulse Resp B/P Pulse Ox O2 Delivery O2 Flow Rate FiO2 11/05/16 07:56 36.5 77 18 103/67 94 11/05/16 00:24 37.0 83 20 95/60 93 Nasal Cannula 2.0 11/05/16 00:00 Nasal Cannula 2.0 11/04/16 21:00 36.8 11/04/16 19:15 37.2 76 18 96/61 93 Room Air 11/04/16 18:13 36.7 79 18 100/65 92 Room Air 11/04/16 17:14 36.8 77 18 93/55 92 Room Air 11/04/16 16:26 37.0 73 18 98/62 92 Room Air 11/04/16 16:10 36.6 71 16 96/59 96 Nasal Cannula 2 11/04/16 16:00 71 16 103/63 96 Nasal Cannula 2 11/04/16 16:00 92 Room Air 11/04/16 15:50 71 16 102/53 95 Nasal Cannula 2 11/04/16 15:40 67 16 104/56 100 Mask 10 11/04/16 15:34 36.8 78 16 111/70 100 Mask 10 11/04/16 11:00 Room Air Abdomen: soft, + distended (slighlty) Incision(s): clean Laboratory Results: Results Past 24 Hours Test 11/05/16 05:20 Range/Units White Blood Count 11.77 4.8-10.8 K/uL Red Blood Count 3.65 4.2-5.4 M/uL Hemoglobin 10.7 12.0-16.0 g/dL Hematocrit 33.0 37-47 % Mean Corpuscular Volume 90.4 80-100 fL Mean Corpuscular Hemoglobin 29.3 25-34 pg Mean Corpuscular Hemoglobin Concent 32.4 32-36 g/dl RDW Standard Deviation 45.3 36.4-46.3 fL RDW Coefficient of Variation 13.6 11.5-14.5 % Platelet Count 195 130-400 K/uL Mean Platelet Volume 9.3 7.4-10.4 fL Sodium Level 138 136-145 mmol/L Potassium Level 4.1 3.5-5.1 mmol/L Chloride Level 105 98-107 mmol/L Carbon Dioxide Level 28 21-32 mmol/L Anion Gap 5.0 3-11 mmol/L Blood Urea Nitrogen 10 7-18 mg/dl Creatinine 0.61 0.60-1.20 mg/dl Est Creatinine Clear Calc Drug Dose 88.8 ml/min Estimated GFR () 109.5 Estimated GFR (Non- 94.5 BUN/Creatinine Ratio 16.6 10-20 Random Glucose 115 70-99 mg/dl Calcium Level 8.1 8.5-10.1 mg/dl Magnesium Level 2.2 1.8-2.4 mg/dl Total Bilirubin 0.8 0.2-1 mg/dl Direct Bilirubin 0.2 0-0.2 mg/dl Aspartate Amino Transf (AST/SGOT) 81 15-37 U/L Alanine Aminotransferase (ALT/SGPT) 74 12-78 U/L Alkaline Phosphatase 58 45-117 U/L Total Protein 6.3 6.4-8.2 gm/dl Albumin 3.0 3.4-5.0 gm/dl Assessment & Plan s/p [place] [facility] to d/c if doing well will keep on Cipro for 5 days
[2016-11-05 12:56] VITALS: O2SAT 80
[2016-11-05] MEDS: CIPROFLOXACIN / D5W 400 MG in PREMIXED IN D5W 200 ML IV SCH (13:02)
[2016-11-05] MEDS: OXYCODONE/ACETAMINOPHEN 5-325 TAB PO PRN ×2 (13:02→21:48)
[2016-11-05 13:04] VITALS: O2SAT 93
--- NOTE | 2016-11-05 15:31 | Surgery Progress Note ---
Surgery Progress Note Date of Service November 05, 2016. Subjective Post OP Day: 1 doing as expected. william diet so far. pain controlled. Objective Vital Signs: Date Time Temp Pulse Resp B/P Pulse Ox O2 Delivery O2 Flow Rate FiO2 11/05/16 13:04 93 Nasal Cannula 2.0 11/05/16 12:56 80 Room Air 11/05/16 08:00 Room Air 11/05/16 07:56 36.5 77 18 103/67 94 11/05/16 00:24 37.0 83 20 95/60 93 Nasal Cannula 2.0 11/05/16 00:00 Nasal Cannula 2.0 11/04/16 21:00 36.8 11/04/16 19:15 37.2 76 18 96/61 93 Room Air 11/04/16 18:13 36.7 79 18 100/65 92 Room Air 11/04/16 17:14 36.8 77 18 93/55 92 Room Air 11/04/16 16:26 37.0 73 18 98/62 92 Room Air 11/04/16 16:10 36.6 71 16 96/59 96 Nasal Cannula 2 11/04/16 16:00 71 16 103/63 96 Nasal Cannula 2 11/04/16 16:00 92 Room Air 11/04/16 15:50 71 16 102/53 95 Nasal Cannula 2 11/04/16 15:40 67 16 104/56 100 Mask 10 11/04/16 15:34 36.8 78 16 111/70 100 Mask 10 General Appearance: no apparent distress Abdomen: non distended, soft Incision(s): clean, dry, intact, no erythema Laboratory Results: Results Past 24 Hours Test 11/05/16 05:20 Range/Units White Blood Count 11.77 4.8-10.8 K/uL Red Blood Count 3.65 4.2-5.4 M/uL Hemoglobin 10.7 12.0-16.0 g/dL Hematocrit 33.0 37-47 % Mean Corpuscular Volume 90.4 80-100 fL Mean Corpuscular Hemoglobin 29.3 25-34 pg Mean Corpuscular Hemoglobin Concent 32.4 32-36 g/dl RDW Standard Deviation 45.3 36.4-46.3 fL RDW Coefficient of Variation 13.6 11.5-14.5 % Platelet Count 195 130-400 K/uL Mean Platelet Volume 9.3 7.4-10.4 fL Sodium Level 138 136-145 mmol/L Potassium Level 4.1 3.5-5.1 mmol/L Chloride Level 105 98-107 mmol/L Carbon Dioxide Level 28 21-32 mmol/L Anion Gap 5.0 3-11 mmol/L Blood Urea Nitrogen 10 7-18 mg/dl Creatinine 0.61 0.60-1.20 mg/dl Est Creatinine Clear Calc Drug Dose 88.8 ml/min Estimated GFR () 109.5 Estimated GFR (Non- 94.5 BUN/Creatinine Ratio 16.6 10-20 Random Glucose 115 70-99 mg/dl Calcium Level 8.1 8.5-10.1 mg/dl Magnesium Level 2.2 1.8-2.4 mg/dl Total Bilirubin 0.8 0.2-1 mg/dl Direct Bilirubin 0.2 0-0.2 mg/dl Aspartate Amino Transf (AST/SGOT) 81 15-37 U/L Alanine Aminotransferase (ALT/SGPT) 74 12-78 U/L Alkaline Phosphatase 58 45-117 U/L Total Protein 6.3 6.4-8.2 gm/dl Albumin 3.0 3.4-5.0 gm/dl Assessment & Plan 11/05/16 POD #1 [place] doing well advance diet ok for d/c when ok with primary service
[2016-11-05 16:24] VITALS: BP 99/61; PULSE 81; TEMP 36.7; O2SAT 97
--- NOTE | 2016-11-05 17:51 | Progress Note ---
Internal Med Progress Note Date of Service: November 05, 2016. Provider Documentation: SUBJECTIVE: feels much better today , minimum pain in abdomen tolerating low fat diet well able to pass gas , no bowel movement yet pt found to be hypoxic in room air and with activity denies of any subjective feeling of SOB ,chest heaviness requiring 2 l 02 , was not on home 02, no hx of lung disease no cough mentions of taking shallow breathing due to abdominal incision pain with taking deep breath pt is asked to use incentive spirometry often OBJECTIVE: Vital Signs-as noted below Exam: General-no sign of distress Eyes-sclera non icteric Lungs-CTA Heart-regular Abdomen-+ laparoscopic surgical incision well healing , no bleeding , no erythema Extremities-no lower ext edema Neuro-AAO x3, no focal deficit Lab data as noted below. ASSESSMENT & PLAN: ACUTE CHOLECYSTITIS s/p Laparoscopic cholecystectomy POD #1 pt presented with crampy epigastric pain assoc with nausea -LFTs and lipase WNL -Gallbladder US + distention but no wall thickening -HIDA -scan shows non visualization of gall bladder , suggestive of acute cholecystitis -surgery consulted taken to OR yesterday day for cholecystectomy recovering well post op tolerating low fat diet , ambulating stable to be discharged home per surgery PO Ciprofloxacin to complete course Surgery post op follow up in 2 weeks HYPOXIA: new development post op possible basilar atelectasis due to not able to take deep breath due to abdominal surgery counselled to use incentive spirometry frequently Nursing noted significant hypoxia in RA Cxray ordered hold discharge home today 1 step exercise in AM H/O BREAST CA -s/p L breast lumpectomy and chemo in 2000 -stable ANXIETY -cont Prozac and Xanax PRN GERD -cont Prevacid CODE STATUS -FULL CODE status DVT PROPHYLAXIS scd and teds ambulate DISPOSITION possible discharge home tomorrow need to assess for home 02 needs prior to discharge Vital Signs: Date Time Temp Pulse Resp B/P Pulse Ox O2 Delivery O2 Flow Rate FiO2 11/06/16 08:30 Room Air 11/06/16 07:52 36.7 84 16 115/75 96 Nasal Cannula 2.0 11/06/16 00:00 Nasal Cannula 2.0 11/05/16 23:17 36.9 80 20 98/61 96 2.0 11/05/16 16:31 Room Air 11/05/16 16:24 36.7 81 18 99/61 97 Nasal Cannula 2.0 Lab Results: Results Past 24 Hours Test 11/06/16 05:43 Range/Units White Blood Count 8.76 4.8-10.8 K/uL Red Blood Count 3.54 4.2-5.4 M/uL Hemoglobin 10.4 12.0-16.0 g/dL Hematocrit 32.2 37-47 % Mean Corpuscular Volume 91.0 80-100 fL Mean Corpuscular Hemoglobin 29.4 25-34 pg Mean Corpuscular Hemoglobin Concent 32.3 32-36 g/dl RDW Standard Deviation 46.2 36.4-46.3 fL RDW Coefficient of Variation 13.8 11.5-14.5 % Platelet Count 200 130-400 K/uL Mean Platelet Volume 9.5 7.4-10.4 fL Sodium Level 142 136-145 mmol/L Potassium Level 3.8 3.5-5.1 mmol/L Chloride Level 110 98-107 mmol/L Carbon Dioxide Level 28 21-32 mmol/L Anion Gap 4.0 3-11 mmol/L Blood Urea Nitrogen 10 7-18 mg/dl Creatinine 0.47 0.60-1.20 mg/dl Est Creatinine Clear Calc Drug Dose 115.2 ml/min Estimated GFR () 119.3 Estimated GFR (Non- 102.9 BUN/Creatinine Ratio 21.6 10-20 Random Glucose 81 70-99 mg/dl Calcium Level 8.1 8.5-10.1 mg/dl Magnesium Level 2.2 1.8-2.4 mg/dl Total Bilirubin 0.6 0.2-1 mg/dl Direct Bilirubin 0.2 0-0.2 mg/dl Aspartate Amino Transf (AST/SGOT) 47 15-37 U/L Alanine Aminotransferase (ALT/SGPT) 62 12-78 U/L Alkaline Phosphatase 62 45-117 U/L Total Protein 6.1 6.4-8.2 gm/dl Albumin 2.8 3.4-5.0 gm/dl
--- NOTE | 2016-11-05 20:02 | DIAGNOSTIC IMAGING REPORT ---
CHEST ONE VIEW PORTABLE CLINICAL HISTORY: sob /HYPOXIA dyspnea COMPARISON STUDY: 11/03/2016 FINDINGS: Mild increase in cardiac size compared to the prior study. Mild increase in pulmonary vasculature. Potential small parenchymal infiltrate medial right as well as left base versus components of congestive failure. IMPRESSION: Developing components of congestive heart failure. Electronically signed by: Nain Goodman M.D. 11/05/2016 8:00 PM Dictated Date/Time: 11/05/2016 8:00 PM
[2016-11-05] MEDS: CIPROFLOXACIN 500 MG TAB PO SCH (21:49)
[2016-11-05 23:17] VITALS: BP 98/61; PULSE 80; TEMP 36.9; O2SAT 96
[2016-11-06] MEDS: ALPRAZOLAM 0.5 MG TAB PO PRN (03:42)
[2016-11-06 06:06] LABS: HEMATOCRIT 32.2 % (37-47); MEAN CORPUSCULAR HEMOGLOBIN 29.4 pg (25-34); MEAN CORPUSCULAR HGB CONC 32.3 g/dl (32-36); MEAN PLATELET VOLUME 9.5 fL (7.4-10.4); PLATELET COUNT 200 K/uL (130-400); RED BLOOD COUNT 3.54 M/uL (4.2-5.4); WHITE BLOOD COUNT 8.76 K/uL (4.8-10.8)
[2016-11-06 06:41] LABS: BUN/CREATININE RATIO 21.6 (10-20); CALCIUM 8.1 mg/dl (8.5-10.1); CREATININE 0.47 mg/dl (0.60-1.20); MAGNESIUM 2.2 mg/dl (1.8-2.4); POTASSIUM 3.8 mmol/L (3.5-5.1)
[2016-11-06 07:52] VITALS: BP 115/75; PULSE 84; TEMP 36.7; O2SAT 96
[2016-11-06] MEDS: DOCUSATE SODIUM 100 MG CAP PO SCH (08:51)
[2016-11-06] MEDS: CEROVITE ADV FORMULA TAB PO SCH (08:51)
[2016-11-06] MEDS: CIPROFLOXACIN 500 MG TAB PO SCH ×2 (08:51→16:53)
[2016-11-06] MEDS: FLUOXETINE HCL 20 MG CAP PO SCH (08:52)
[2016-11-06] MEDS: EZETIMIBE/SIMVASTATIN 10/40 TAB PO SCH (08:52)
[2016-11-06] MEDS: PANTOprazole SOD 40 MG TAB PO SCH (08:52)
[2016-11-06] MEDS: PRESERVISION AREDS~ORDER AWAITING ACTION SCH ×2 (08:52→16:35)
--- NOTE | 2016-11-06 10:16 | Surgery Progress Note ---
Surgery Progress Note Date of Service November 06, 2016. Subjective Post OP Day: 2 feeling ok..no acute surgical changes. william diet. pain management adequate. Objective Vital Signs: Date Time Temp Pulse Resp B/P Pulse Ox O2 Delivery O2 Flow Rate FiO2 11/06/16 07:52 36.7 84 16 115/75 96 Nasal Cannula 2.0 11/06/16 00:00 Nasal Cannula 2.0 11/05/16 23:17 36.9 80 20 98/61 96 2.0 11/05/16 16:31 Room Air 11/05/16 16:24 36.7 81 18 99/61 97 Nasal Cannula 2.0 11/05/16 13:04 93 Nasal Cannula 2.0 11/05/16 12:56 80 Room Air General Appearance: no apparent distress Abdomen: non distended, soft, + tenderness Incision(s): clean, dry, intact Laboratory Results: Results Past 24 Hours Test 11/06/16 05:43 Range/Units White Blood Count 8.76 4.8-10.8 K/uL Red Blood Count 3.54 4.2-5.4 M/uL Hemoglobin 10.4 12.0-16.0 g/dL Hematocrit 32.2 37-47 % Mean Corpuscular Volume 91.0 80-100 fL Mean Corpuscular Hemoglobin 29.4 25-34 pg Mean Corpuscular Hemoglobin Concent 32.3 32-36 g/dl RDW Standard Deviation 46.2 36.4-46.3 fL RDW Coefficient of Variation 13.8 11.5-14.5 % Platelet Count 200 130-400 K/uL Mean Platelet Volume 9.5 7.4-10.4 fL Sodium Level 142 136-145 mmol/L Potassium Level 3.8 3.5-5.1 mmol/L Chloride Level 110 98-107 mmol/L Carbon Dioxide Level 28 21-32 mmol/L Anion Gap 4.0 3-11 mmol/L Blood Urea Nitrogen 10 7-18 mg/dl Creatinine 0.47 0.60-1.20 mg/dl Est Creatinine Clear Calc Drug Dose 115.2 ml/min Estimated GFR () 119.3 Estimated GFR (Non- 102.9 BUN/Creatinine Ratio 21.6 10-20 Random Glucose 81 70-99 mg/dl Calcium Level 8.1 8.5-10.1 mg/dl Magnesium Level 2.2 1.8-2.4 mg/dl Total Bilirubin 0.6 0.2-1 mg/dl Direct Bilirubin 0.2 0-0.2 mg/dl Aspartate Amino Transf (AST/SGOT) 47 15-37 U/L Alanine Aminotransferase (ALT/SGPT) 62 12-78 U/L Alkaline Phosphatase 62 45-117 U/L Total Protein 6.1 6.4-8.2 gm/dl Albumin 2.8 3.4-5.0 gm/dl Assessment & Plan 11/06/16 pod #2 doing ok/william diet ok for d/c from surgery perspective when ok with primary service. instructions given 11/05/16 POD #1 lap edilma doing well advance diet ok for d/c when ok with primary service 11/05/16 POD #1 lap edilma doing well advance diet ok for d/c when ok with primary service
[2016-11-06] MEDS ORDERED: FUROSEMIDE INJ 20 MG in SYRINGE 0 ML IV SCH (15:15)
[2016-11-06] MEDS ORDERED: NURSING VERBAL MED ORDER ONE ×2 (15:30→16:45)
[2016-11-06] MEDS ORDERED: BISACODYL 10 MG SUPP PR STA (15:41)
[2016-11-06] MEDS ORDERED: BISACODYL 5 MG TABEC PO ONE (15:45)
[2016-11-06] MEDS ORDERED: FUROSEMIDE 20 MG TAB PO SCH ×2 (16:00→17:00)
[2016-11-06] MEDS ORDERED: OXYGEN (16:01)
[2016-11-06] MEDS ORDERED: LASIX PO (16:02)
--- NOTE | 2016-11-06 16:03 | Discharge Summary ---
Discharge Summary Date of Service November 06, 2016. Discharge Summary Admission Date: November 04, 2016 at 13:46 Discharge Date: November 06, 2016 Discharge Disposition: Home Principal Diagnosis: ACUTE CHOLECYSTITIS S/P LAPAROSCOPIC CHOLECYSTECTOMY Procedures: S/P LAPAROSCOPIC CHOLECYSTECTOMY on November 04, [address] Faizan DOAN scan : no visualization of gall bladder suggestive of acute cholecystitis Consultations: SURGERY DR GLORIA Medication Reconciliation New Medications: Ciprofloxacin Hcl (Cipro) 500 Mg Tab 500 MG PO BID, #10 TAB Home O2 Therapy (Oxygen) Gas 1 LITER NA CONTINOUS for Shortness of Breath, #2 Oxycodone/Acetaminophen 5MG/325MG (Percocet 5MG/325MG) Tab 1-2 TABLETS PO Q4H PRN for Pain, #30 TAB [Lasix ] () 20 MG PO DAILY, #1 Continued Medications: Alprazolam (Xanax) 0.5 Mg Tab 0.5 MG PO TID PRN for Anxiety, TAB Calcium Carbonate-Vitamin D W/ (Caltrate 600 Plus) 1 Tab Tab 1 TAB PO BID, TAB Ezetimibe/Simvastatin (Vytorin 10MG/40MG) Tab 1 TAB PO QAM, TAB Fluoxetine (Prozac) 40 Mg Cap 40 MG PO DAILY, CAP Glucosamine Sulfate-Methylsulf (Msm/Glucosamine) 1 Cap Cap 1 CAP PO BID Lansoprazole (Prevacid) 15 Mg Capcr 30 MG PO DAILY, CAP Multiple Vitamins W/ Minerals (Preservision Areds 2) 1 Cap Cap 2 CAP PO QAM Multivitamins/Minerals (Mvi With Minerals) Tab 1 TAB PO DAILY, TAB Referrals At Discharge Follow up Referrals: Surgery Referral - Within 1-2 Weeks with Nav Gloria D.O. Admission Information HPI (per Admitting provider): This is a 66 y/o female with PMHx as outlined below who presents to the ED c/o epigastric pain x 6 hrs. 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 Her sxs were assoc with nausea. Nothing makes her sxs better or worse but she mentions she feels like if she keeps moving she will feel better. She did not take anything for her sxs at home. Last meal was breakfast this morning. Pt has had similar sxs a few years ago but her workup was benign and the pain eventually subsided. Pt denies fever/ chills, diaphoresis, chest pain, SOB, vomiting, bowel or bladder issues, LE edema ,calf pain, lightheadedness/dizziness. In the ED, vitals are stable. Pt is afebrile with no leukocytosis. K+ 3.3. LFTs WNL. gallbladder US + gallbladder distention but no thickening. Pt is stable and will be admitted for further evaluation and treatment. Physical Exam (per Admitting): General Appearance: WD/WN, no apparent distress, + pertinent finding (Pt is sitting up in bed with at bedside) Head: normocephalic, atraumatic Eyes: normal inspection, + pertinent finding (anicteric) ENT: hearing grossly normal Neck: supple Respiratory/Chest: chest non-tender, lungs clear, normal breath sounds, no respiratory distress Cardiovascular: regular rate, rhythm, no edema, no murmur Abdomen/GI: normal bowel sounds, soft, + tenderness (RUQ; + murphys sign) Back: normal inspection Extremities/Musculoskelatal: normal inspection, no calf tenderness, no pedal edema Neurologic/Psych: alert, normal mood/affect, oriented x 3 Skin: normal color, warm/dry, + pertinent finding (no jaundice) Hospital Course ACUTE CHOLECYSTITIS s/p Laparoscopic cholecystectomy POD # 2 pt presented with crampy epigastric pain assoc with nausea -LFTs and lipase WNL -Gallbladder US + distention but no wall thickening -HIDA -scan shows non visualization of gall bladder , suggestive of acute cholecystitis -surgery consulted taken to OR yesterday day for cholecystectomy recovering well post op tolerating low fat diet , ambulating stable to be discharged home per surgery PO Ciprofloxacin to complete course Surgery post op follow up in 2 weeks HYPOXIA: new development post op possible basilar atelectasis due to not able to take deep breath due to abdominal surgery counselled to use incentive spirometry frequently Nursing noted significant hypoxia in RA Cxray : show pulmonary congestion -possible vol overload -as pt recived IV fluid pre and post op + ve vol ~ 3 L 2 step exercise show pt required 02 2 L via nasal canula scrip given arrangements made for home 02 ordered low dose Lasix 20 mg PO daily X3 days repeat Cxray , BMP as out pt evaluation at Family physician office visit to wean off 02 H/O BREAST CA -s/p L breast lumpectomy and chemo in 2000 -stable ANXIETY -cont Prozac and Xanax PRN -pt is asked not to take Xanax and Percocet together for risk of increased sedation GERD -cont Prevacid CODE STATUS -FULL CODE status DVT PROPHYLAXIS scd and teds ambulate DISPOSITION discharge home today Total time spent on discharge = 45MINS This includes examination of the patient, discharge planning, medication reconciliation, and communication with other providers. Discharge Instructions Discharge Instructions Date of Service November 04, 2016. Admission Reason for Admission: Abdominal Pain Discharge Discharge Diagnosis / Problem: ACUTE CHOLECYSTITIS S/P LAPAROSCOPIC CHOLECYSTECTOMY Discharge Goals Goal(s): Decrease discomfort, Diagnostic testing, Therapeutic intervention Activity Recommendations Activity Limitations: as noted below Lifting Limitations: no more than 10 pounds (for 3 days ) Shower/Bathe: no limitations Driving or Machine Use: resume 3 days after discharge Activity Limitations: as noted below Lifting Limitations: no more than 10 pounds for 3 days Shower/Bathe: no limitations Driving or Machine Use: resume 3 days after discharge . Instructions / Follow-Up Instructions / Follow-Up HOSPITAL FOLLOW UP ON 11/10/2016 @ 1:[address] Sheron Gill, DO Family Practice [facility] TAKE LASIX 20 MG BY MOUTH DAILY FOR X3 DAYS CONTINUE TO USE INCENTIVE SPIROMETRY AT HOME DO NOT TAKE TYLENOL WHILE TAKING PERCOCET CAN TAKE MOTRIN , ADVIL , ALEVE - NEED FOR PAIN IN BETWEEN PERCOCET , ALWAYS TAKE WITH FULL STOMACH DO NOT TAKE XANAX AND PERCOCET AT THE SAME TIME -WILL CAUSE INCREASED SEDATION DO NOT DRIVE AFTER TAKING PERCOCET- IT CAUSES DROWSINESS, DIMINISHED ALERTNESS IT IS VERY IMPORTANT TO TAKE STOOL SOFTENER TO PREVENT CONSTIPATION WHILE TAKING PAIN MEDS ( PERCOCET ) YOU CAN TAKE OVER THE COUNTER STOOL SOFTENER -MIRALAX , COLACE, DULCOLAX TAKE MIRALAX 1-2 HEAPED TABLE SPOONFUL IN 8 OZ OF WATER /JUICE OR ANY BEVERAGE 2-3 TIMES DAILY UNTIL YOU HAVE BOWEL MOVEMENT CHEST XRAY PA AND LATERAL VIEW ON Wednesday11/09/16 TO ASSESS IMPROVEMENT / RESOLUTION OF LUNG CONGESTION DUE TO IV FLUID YOU MAY NOT NEED [facility] OXYGEN SUPPLELY IF YOUR LUNG CONGESTION RESOLVES WITH TAKING LASIX LAB WORK : BASIC METABOLIC PANEL ON Wednesday11/09/[address] FOLLOW UP WITH DR GLORIA in 2 weeks, call [phone] to schedule, [facility] [place] [address] Current Hospital Diet Patient's current hospital diet: Low Fat Diet Discharge Diet Recommended Diet: Low Fat Diet Procedures Procedures Performed: Laparoscopic cholecystectomy Pending Studies Studies pending at discharge: yes List of pending studies: LAB WORK : BASIC METABOLIC PANEL ON Wednesday11/09/16 CHEST XRAY PA/LATERAL VIEW ON Wednesday11/09/16 Medical Emergencies . Who to Call and When: Medical Emergencies: If at any time you feel your situation is an emergency, please call 911 immediately. . Non-Emergent Contact Non-Emergency issues call your: Primary Care Provider . . "Provider Documentation" section prepared by Bonnie Faith. . VTE Core Measure Inpt VTE Proph given/why not?: Genoveva Branch, SCD's [place] Drug Monitoring Program Search Results: no issues identified Additional Copies To Sheron Gill D.O. Davidson, Matthew D. D.O.
[2016-11-06 16:18] VITALS: BP 115/75; PULSE 84; TEMP 36.7; O2SAT 96
== END 2016-11-06 17:15 | disposition home or self-care (01) | DRG 418 ==
LOC: ENRESERVTM → ENRESERVDT → C.EDB 15:28 → C.4E 21:29 → OBSVTOIN 11-04 13:46
PROVIDERS: ADMIT Hospitalist; ATTEND Hospitalist
PROC: 0FT44ZZ Resection of Gallbladder, Percutaneous Endoscopic Approach (ICD-10-PCS; principal; 2016-11-04 07:30)
DX: K81.0 Acute cholecystitis (principal); J95.89 Other postprocedural complications and disorders of respiratory system, not elsewhere classified; J98.11 Atelectasis; Z85.3 Personal history of malignant neoplasm of breast; F41.9 Anxiety disorder, unspecified; K21.9 Gastro-esophageal reflux disease without esophagitis; E87.6 Hypokalemia; E78.5 Hyperlipidemia, unspecified; E87.70 Fluid overload, unspecified

== ENCOUNTER → 2017-06-25 | Day surgery (SDC) | payer BC, OTHER ==
[2017-06-16 15:33] VITALS: Ht 165.1 cm; Wt 65.9 kg
[~2017-06-25] VITALS: Ht 165.1 cm; Wt 65.9 kg
[~2017-06-25] MED LIST: ALPR-411 PO; ATROPINE SULFATE 0.1 MG/ML 5ML SYR IV PRN; BUPIVACAINE 0.5 % 5 MG/1 ML MPF 30ML VIAL ONE; CALC600T9 PO; CEFAZOLIN 2000MG IV PUSH 10 ML IV SCH; DEXAMETHASONE SOD INJ 4 MG/ML VIAL ONE; EZET10TA41 PO; EpHEDrine SULFATE 50MG/5ML SYR ONE; EpHEDrine SULFATE INJ 50 MG/ML AMP IV PRN; FENTANYL CITRATE INJ 50 MCG/1 ML 2 ML VIAL ONE; FLUO40CA8 PO; GLUC10007 PO; HYDR-5688 PO; HYDROCODONE/ACETAMIN 5/325MG TAB PO PRN; HYDROmorphone INJ 1 MG/ML SYR IV PRN; KETOROLAC TROMETHAMINE 30 MG/ML VIAL ONE; LACTATED RINGER'S 1000ML 1,000 ML IV SCH; LANS15CA6 PO; LIDOCAINE HCL 2% 2 ML VIAL (20MG/ML) ONE; MIDAZOLAM HCL 1 MG/ML 2ML VIAL ONE; MULT-513 PO; MULT60CA PO; MoRPHine SULFATE 2 MG/ML CARP IV PRN; ONDANSETRON INJ 2 MG/ML 2 ML VIAL IV PRN; ONDANSETRON INJ 2 MG/ML 2 ML VIAL ONE; PROPOFOL IV EMULSION 10 MG/ML 20 ML VIAL IV ONE
--- NOTE | 2017-06-25 11:13 | History & Physical Bridge Note ---
H&P Re-Evaluation Bridge Note: I have examined the patient, reviewed the History & Physical and in the interval since the performance of the History & Physical I have noted the following changes of clinical significance: No changes noted. will be performing an open incisional hernia repair, likely with mesh. questions answered. ok to proceed.
--- NOTE | 2017-06-25 12:36 | Discharge Instructions ---
Discharge Instructions Date of Service Jun 25, 2017. Visit Reason for Visit: Incisional Hernia Discharge Discharge Diagnosis / Problem: repair of hernia with mesh Discharge Goals Goal(s): Decrease discomfort Activity Recommendations Activity Limitations: as noted below Lifting Limitations: no more than 10 pounds Shower/Bathe: no limitations (ok to shower) Driving or Machine Use: resume 3 days after discharge Anesthesia . Post Anesthesia Instructions: If you have had General Anesthesia or IV Sedation: * Do not drive today. * Resume driving when surgeon permits. * Do not make important decisions or sign legal documents today. * Call surgeon for: 1. Temperature elevations greater than 101 degrees F. 2. Uncontrollable pain. 3. Excessive bleeding. 4. Persistent nausea and vomiting. 5. Medication intolerance (nausea, vomiting or rash). * For nausea and vomiting use only clear liquids such as: tea, soda, bouillon until nausea subsides, then gradually increase diet as tolerated. * If you have any concerns or questions, call your surgeon's office. If physician is unavailable and it is an emergency, call 911 or go to the nearest emergency room. . Instructions / Follow-Up Instructions / Follow-Up Dr. Gloria in approx 2 weeks as planned, call [phone] for any questions or concerns Diet Recommendations Recommended Home Diet: no limitations Procedures Procedures Performed: Incisional Hernia Open Repair With Mesh Pending Studies Studies pending at discharge: no Medical Emergencies . Who to Call and When: Medical Emergencies: If at any time you feel your situation is an emergency, please call 911 immediately. . Non-Emergent Contact Non-Emergency issues call your: Surgeon Call Non-Emergent contact if: you have a fever, temperature is above 101.5, your pain is not controlled, wound has increased drainage, wound has increased redness, you have any medication questions . . "Provider Documentation" section prepared by Luis Angel Hamlin. .
--- NOTE | 2017-06-25 12:44 | [facility] Operative Report ---
Operative Report Operative Date Jun 25, 2017. Pre-Operative Diagnosis Incisional hernia Post-Operative Diagnosis Same as pre-op Procedure(s) Performed Incisional Hernia Open Repair With Mesh Surgeon Respiratory Therapy Assistant Surgeon(s) Kasia Hamlin PA-C Estimated Blood Loss 5ML Findings port site hernia. approx 2 cm Specimens None Anesthesia LMA Complication(s) None Disposition Recovery Room / PACU Description of Procedure After informed consent was obtained the patient was taken to the operating room and placed in a supine position. After successful placement of a laryngeal mask airway the abdomen was sterilely prepped and draped in usual fashion. We made a supra umbilical incision through her old scar line with a 15 blade scalpel and carried down through the soft tissue using electrocautery. We immediately encountered a hernia sac which we opened and excised. This took us down to about a 2 cm port site fascial defect. We were able to grab the edges with Allis clamps and elevate them. A finger sweep was performed to ensure that there was no underlying adhesions. We then used a piece of mesh. We used a V-patch 6 cm mesh and we inserted it such that the anti-adhesive barrier was down. We then rolled it out flat and pulled up to the anterior abdominal wall using the provided arms. We secured both arms to fascia using 0 Ethibond. We used 4 point fixation on both sides. For better cosmetic appearance we then also closed the fascia over top of the mesh using again 0 Ethibond in simple interrupted fashion. We then thoroughly irrigated the wound and close it in 2 layers using 3-0 Vicryl for deep layers and 4-0 Monocryl for skin. Marcaine was injected around for postoperative analgesia and a sterile dressing applied My physician's teachers' assistant was present throughout the entire case. He helped prepped the patient as well as full exposure during the repair. He also helped with wound closure and dressing placement I attest to the content of the Intraoperative Record and any orders documented therein. Any exceptions are noted below.
[2017-06-25] MEDS: FENTANYL CITRATE INJ 50 MCG/1 ML 2 ML VIAL IV PRN ×2 (12:49→13:04)
--- NOTE | 2017-06-25 13:28 | Anesthesia Progress Nt - [facility] ---
Anesthesia Post Op Note Date & Time Jun 25, 2017 at 13:28 Vital Signs Pain Intensity: 2 Vital Signs Past 12 Hours Date Time Temp Pulse Resp B/P (MAP) Pulse Ox O2 Delivery O2 Flow Rate FiO2 06/25/17 13:18 86 16 96 06/25/17 13:18 85 16 06/25/17 13:16 115/84 06/25/17 13:16 37.0 85 20 115/84 96 Room Air 06/25/17 13:13 77 13 06/25/17 13:13 77 13 100 06/25/17 13:11 122/64 06/25/17 13:08 79 19 100 06/25/17 13:08 80 19 06/25/17 13:07 82 21 100 06/25/17 13:07 82 21 06/25/17 13:06 135/69 06/25/17 13:02 83 21 100 06/25/17 13:02 82 21 06/25/17 13:01 119/77 06/25/17 12:57 82 19 125/59 100 06/25/17 12:57 82 19 06/25/17 12:52 81 16 06/25/17 12:52 80 16 100 06/25/17 12:51 130/85 06/25/17 12:49 80 17 100 06/25/17 12:49 81 17 06/25/17 12:46 121/69 06/25/17 12:44 81 17 100 06/25/17 12:44 83 17 06/25/17 12:41 129/70 06/25/17 12:39 81 14 06/25/17 12:39 81 14 98 06/25/17 12:36 89/82 06/25/17 12:35 36.6 86 16 132/81 98 Mask 5 06/25/17 12:35 132/81 06/25/17 10:27 36.7 79 16 113/68 (83) 97 Room Air Notes Mental Status: alert / awake / arousable, participated in evaluation Pt Amnestic to Procedure: Yes Nausea / Vomiting: adequately controlled Pain: adequately controlled Airway Patency, RR, SpO2: stable & adequate BP & HR: stable & adequate Hydration State: stable & adequate Anesthetic Complications: no major complications apparent
[2017-06-25 15:06] VITALS: BP 116/78; PULSE 82; TEMP 36.6; O2SAT 97
== END | disposition home or self-care (01) ==
LOC: X.SURG 10:10
PROVIDERS: ATTEND Surgery
DX: K43.2 Incisional hernia without obstruction or gangrene (principal); K21.9 Gastro-esophageal reflux disease without esophagitis; E78.5 Hyperlipidemia, unspecified; Z92.21 Personal history of antineoplastic chemotherapy; Z85.3 Personal history of malignant neoplasm of breast; Z90.49 Acquired absence of other specified parts of digestive tract; Z83.3 Family history of diabetes mellitus; Z80.3 Family history of malignant neoplasm of breast